=== PATIENT | male | born 1990 | race Two or more races ===

== ENCOUNTER 2019-06-16 08:02 | Inpatient (IN) | payer MEDICAID ==
[~2019-06-16] VITALS: Ht 154.9 cm; Wt 61.2 kg
[2019-06-16 08:05] VITALS: BP 131/84
--- NOTE | 2019-06-16 08:10 | NUR ---
ED Nurse Note: Patient brought in by fire from home c/o lower abdominal pain that started since 1 pm on 06/15/19, denies any nausea or vomiting, rates his pain a 9/10 pressure like pain, patient is alert and oriented x4 and is a irish speaking male, states that this is the first time he is having his issue, will continue to monitor
[2019-06-16] MEDS ORDERED: Omnipaque-300 100ml vial INJ PRN (08:15)
[2019-06-16] MEDS ORDERED: Ketorolac 30mg Inj IV ONE (08:15)
[2019-06-16] MEDS ORDERED: Metoclopramide 10mg/2ml Inj IVP ONE (08:15)
[2019-06-16 08:35] LABS: APPEARANCE,URINE CLEAR; BILIRUBIN, URINE NEGATIVE (NEGATIVE); GLUCOSE, URINE (UA) NEGATIVE (NEGATIVE); KETONES,URINE 1+ (NEGATIVE); LEUKOCYTE ESTERASE ,URINE 1+ (NEGATIVE); NITRITE,URINE NEGATIVE (NEGATIVE); PH,URINE 6.5 (4.5-8.0); PROTEIN,URINE 1+ (NEGATIVE); UROBILINOGEN,URINE 1 MG/DL (0.0-1.0)
[2019-06-16 08:39] LABS: COLOR,URINE YELLOW
[2019-06-16 08:41] LABS: BASOPHILS % (AUTO) 0.9 % (0.0-2.0); EOSINOPHILS % (AUTO) 0.6 % (0.0-3.0); HEMATOCRIT 36.3 % (42.0-52.0); HEMOGLOBIN 13.4 G/DL (14.2-18.0); MEAN CORPUSCULAR VOLUME 88 FL (80-99); MONOCYTES % (AUTO) 9.3 % (1.0-10.0); NEUTROPHILS % (AUTO) 58.2 % (45.0-75.0); PLATELET COUNT 183 K/UL (150-450); RED BLOOD COUNT 4.14 M/UL (4.70-6.10); RED CELL DISTRIBUTION WIDTH 10.6 % (11.6-14.8); WHITE BLOOD COUNT 8.5 K/UL (4.8-10.8)
[2019-06-16 08:52] LABS: ANION GAP 9 mmol/L (5-15); BLOOD UREA NITROGEN 19 mg/dL (7-18); CALCIUM 8.8 MG/DL (8.5-10.1); CARBON DIOXIDE 29 MMOL/L (21-32); CHLORIDE 101 MMOL/L (98-107); CREATININE 0.8 MG/DL (0.55-1.30); POTASSIUM 3.4 MMOL/L (3.5-5.1); SODIUM 139 MMOL/L (136-145)
[2019-06-16 08:57] LABS: ALANINE AMINOTRANSFERASE 69 U/L (12-78); ALBUMIN 3.8 G/DL (3.4-5.0); ALKALINE PHOSPHATASE 77 U/L (46-116); ASPARTATE AMINO TRANSFERASE 24 U/L (15-37); BILIRUBIN,TOTAL 0.8 MG/DL (0.2-1.0)
--- NOTE | 2019-06-16 09:57 | Emergency Room Report ---
History of Present Illness General Chief Complaint: Abdominal Pain Source: Patient Present Illness HPI Patient presents with complaints of right lower abdominal pain Reports that pain started yesterday around 1:00 in the morning Denies any fevers denies any vomiting Denies any diarrhea Denies any chest pain or shortness of breath denies any recent trauma Pain is 8 out of 10 localized to the right lower quadrant denies any testicular pain Denies any change with position or exertion Allergies: Coded Allergies: No Known Allergies (Unverified , 06/16/19) Patient History Past Medical History: see triage record Reviewed Nursing Documentation: PMH: Agreed; PSxH: Agreed Nursing Documentation-PMH Hx Cardiac Problems: No - HIV + Review of Systems All Other Systems: negative except mentioned in HPI Physical Exam Vital Signs Date Time Temp Pulse Resp B/P (MAP) Pulse Ox O2 Delivery O2 Flow Rate FiO2 06/16/19 07:54 99.0 110 18 140/80 (100) 98 Room Air Sp02 EP Interpretation: reviewed, normal General Appearance: well appearing, no apparent distress Head: normocephalic, atraumatic Eyes: bilateral eye PERRL, bilateral eye EOMI ENT: hearing grossly normal, normal pharynx, TMs + canals normal, uvula midline Neck: full range of motion, supple, no meningismus, no bony tend Respiratory: lungs clear, normal breath sounds, no rhonchi, no respiratory distress, no retraction, no accessory muscle use Cardiovascular #1: normal peripheral pulses, regular rate, rhythm, no edema, no gallop, no JVD, no murmur Gastrointestinal: normal bowel sounds, soft, no mass, no organomegaly, non- distended, no guarding, no hernia, no pulsatile mass, no rebound, tenderness - Reproduce in the right mid and lower abdominal region Genitourinary: no CVA tenderness Musculoskeletal: normal inspection Neurologic: oriented x3, responsive, 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 as tested, motor strength/ tone normal, sensory intact Psychiatric: mood/affect normal Skin: no rash Lymphatic: normal inspection, no adenopathy Medical Decision Making Diagnostic Impression: Primary Impression: Abdominal mass Additional Impressions: Abdominal pain HIV (human immunodeficiency virus infection) ER Course With the history exam and presentation, multiple differentials considered, including but not limited to appendicitis, gastritis, cholecystitis, diverticulitis Patient has extensive blood work and imaging initiated CT imaging is showing concerning findings there is what appears to be possible mass There is also a hemorrhagic component Contact is made with general surgery patient will require admission and further care Labs Test 06/16/19 08:20 06/16/19 08:32 06/17/19 07:07 White Blood Count 8.5 K/UL (4.8-10.8) 6.5 K/UL (4.8-10.8) Red Blood Count 4.14 M/UL (4.70-6.10) 3.64 M/UL (4.70-6.10) Hemoglobin 13.4 G/DL (14.2-18.0) 11.7 G/DL (14.2-18.0) Hematocrit 36.3 % (42.0-52.0) 32.5 % (42.0-52.0) Mean Corpuscular Volume 88 FL (80-99) 89 FL (80-99) Mean Corpuscular Hemoglobin 32.3 PG (27.0-31.0) 32.2 PG (27.0-31.0) Mean Corpuscular Hemoglobin Concent 36.8 G/DL (32.0-36.0) 36.1 G/DL (32.0-36.0) Red Cell Distribution Width 10.6 % (11.6-14.8) 9.8 % (11.6-14.8) Platelet Count 183 K/UL (150-450) 159 K/UL (150-450) Mean Platelet Volume 10.3 FL (6.5-10.1) 9.2 FL (6.5-10.1) Neutrophils (%) (Auto) 58.2 % (45.0-75.0) 59.5 % (45.0-75.0) Lymphocytes (%) (Auto) 31.0 % (20.0-45.0) 28.0 % (20.0-45.0) Monocytes (%) (Auto) 9.3 % (1.0-10.0) 10.2 % (1.0-10.0) Eosinophils (%) (Auto) 0.6 % (0.0-3.0) 1.1 % (0.0-3.0) Basophils (%) (Auto) 0.9 % (0.0-2.0) 1.2 % (0.0-2.0) Urine Color Yellow Urine Appearance Clear Urine pH 6.5 (4.5-8.0) Urine Specific [place] 1.015 (1.005-1.035) Urine Protein 1+ (NEGATIVE) Urine Glucose (UA) Negative (NEGATIVE) Urine Ketones 1+ (NEGATIVE) Urine Blood Negative (NEGATIVE) Urine Nitrite Negative (NEGATIVE) Urine Bilirubin Negative (NEGATIVE) Urine Urobilinogen 1 MG/DL (0.0-1.0) Urine Leukocyte Esterase 1+ (NEGATIVE) Urine RBC 0 /HPF (0 - 0) Urine WBC 2-4 /HPF (0 - 0) Urine Squamous Epithelial Cells Occasional /LPF Urine Bacteria Occasional /HPF (NONE) Sodium Level 139 MMOL/L (136-145) 140 MMOL/L (136-145) Potassium Level 3.4 MMOL/L (3.5-5.1) 3.9 MMOL/L (3.5-5.1) Chloride Level 101 MMOL/L (98-107) 105 MMOL/L (98-107) Carbon Dioxide Level 29 MMOL/L (21-32) 26 MMOL/L (21-32) Anion Gap 9 mmol/L (5-15) 9 mmol/L (5-15) Blood Urea Nitrogen 19 mg/dL (7-18) 8 mg/dL (7-18) Creatinine 0.8 MG/DL (0.55-1.30) 0.7 MG/DL (0.55-1.30) Estimat Glomerular Filtration Rate > 60 mL/min (>60) > 60 mL/min (>60) Glucose Level 124 MG/DL (74-106) 101 MG/DL (74-106) Calcium Level 8.8 MG/DL (8.5-10.1) 8.5 MG/DL (8.5-10.1) Total Bilirubin 0.8 MG/DL (0.2-1.0) 0.8 MG/DL (0.2-1.0) Aspartate Amino Transf (AST/SGOT) 24 U/L (15-37) 26 U/L (15-37) Alanine Aminotransferase (ALT/SGPT) 69 U/L (12-78) 63 U/L (12-78) Alkaline Phosphatase 77 U/L (46-116) 63 U/L (46-116) Total Protein 7.7 G/DL (6.4-8.2) 7.1 G/DL (6.4-8.2) Albumin 3.8 G/DL (3.4-5.0) 3.4 G/DL (3.4-5.0) Globulin 3.9 g/dL 3.7 g/dL Albumin/Globulin Ratio 1.0 (1.0-2.7) 0.9 (1.0-2.7) Lipase 170 U/L (73-393) Erythrocyte Sedimentation Rate 29 MM/HR (0-15) Prothrombin Time 10.0 SEC (9.30-11.50) Prothromb Time International Ratio 0.9 (0.9-1.1) Activated Partial Thromboplast Time 28 SEC (23-33) C-Reactive Protein, Quantitative 3.7 mg/dL (0.00-0.90) Amylase Level 54 U/L (25-115) Rhythm Strip Diag. Results EP Interpretation: yes Rate: 77 Rhythm: NSR, no PVC's, no ectopy CT/MRI/US Diagnostic Results CT/MRI/US Diagnostic Results : Impression CT abdomen pelvisIMPRESSION: 6 x 8.0 x 10.4 cm hyperdense mass of the posterior lateral wall of the ascending colon. Narrowing of the colonic lumen without obstruction. Small hyperdense fluid along the right paracolic gutter and in the pelvis may be hemorrhagic. Findings worrisome for neoplasm, possibly hemorrhagic. Differential may include hemorrhage or infection of a duplication cyst. Last Vital Signs Date Time Temp Pulse Resp B/P (MAP) Pulse Ox O2 Delivery O2 Flow Rate FiO2 06/16/19 09:00 98.9 06/16/19 08:05 90 18 Room Air 06/16/19 08:05 131/84 98 Status: improved Disposition: ADMITTED INPATIENT Condition: Serious Scripts Unable to Obtain Active Prescriptions or Reported Meds Referrals: NON PHYSICIAN (PCP) Jae Camejo DO Jun 16, 2019 09:57
--- NOTE | 2019-06-16 10:34 | Diagnostic Imaging Report ---
EXAM: CT Abdomen and Pelvis With Intravenous Contrast CLINICAL HISTORY: PAIN TECHNIQUE: Axial computed tomography images of the abdomen and pelvis with intravenous contrast. CTDI is 11.4 mGy and DLP is 664 mGy-cm. One or more of the following dose reduction techniques were used: automated exposure control, adjustment of the mA and or kV according to patient size, use of iterative reconstruction technique. COMPARISON: No relevant prior studies available. FINDINGS: Lung bases: Bibasilar lung atelectasis airspace disease. ABDOMEN: Liver: Mild fatty liver. Gallbladder and bile ducts: Unremarkable. No calcified stones. No ductal dilation. Pancreas: Unremarkable. No mass. No ductal dilation. Spleen: Unremarkable. No splenomegaly. Adrenals: Unremarkable. No mass. Kidneys and ureters: 2.5 cm left renal cyst. No hydronephrosis. Stomach and bowel: 6 x 8.0 x 10.4 cm hyperdense mass of the posterior lateral wall of the ascending colon. Narrowing of the colonic lumen without obstruction. Small hyperdense fluid along the right paracolic gutter and in the pelvis may be hemorrhagic. PELVIS: Appendix: No findings to suggest acute appendicitis. Bladder: Mild thickening of the urinary bladder. Reproductive: Unremarkable as visualized. ABDOMEN and PELVIS: Intraperitoneal space: Unremarkable. No free air. No significant fluid collection. Bones joints: No acute fracture. No dislocation. Soft tissues: Small bilateral fat-containing inguinal hernias. Gynecomastia. Vasculature: Unremarkable. No abdominal aortic aneurysm. Lymph nodes: Small mesenteric and retroperitoneal lymph nodes. IMPRESSION: 6 x 8.0 x 10.4 cm hyperdense mass of the posterior lateral wall of the ascending colon. Narrowing of the colonic lumen without obstruction. Small hyperdense fluid along the right paracolic gutter and in the pelvis may be hemorrhagic. Findings worrisome for neoplasm, possibly hemorrhagic. Differential may include hemorrhage or infection of a duplication cyst.
[2019-06-16 11:00] VITALS: BP 127/80
--- NOTE | 2019-06-16 12:01 | Consultation ---
History of Present Illness General Date patient seen: Jun 16, 2019 Reason for Hospitalization: Abdominal Pain Present Illness HPI This is a very pleasant 28-year-old male with known history of HIV currently under treatment who presented to the emergency department at [facility] complaining of worsening right lower quadrant abdominal pain. Patient starts pain began yesterday and has been progressively getting worse so he came in for evaluation. No nausea vomiting fever or chills. Normal flatus and bowel movements. In emergency department labs okay but CT scan concerning for lesion in the ascending colon. Surgery was called to evaluate. Patient seen, patient evaluated, chart reviewed. No prior similar symptoms. No other medical issues. Medications for HIV which his partner will bring in today. Allergies: Coded Allergies: No Known Allergies (Unverified , 06/16/19) Patient History History Provided By: Patient, PMD Healthcare decision maker Resuscitation status Advanced Directive on File Past Medical/Surgical History Past Medical/Surgical History: (1) HIV (human immunodeficiency virus infection) Review of Systems Review of Symptoms General ROS: no weight loss or fever Psychological ROS: no depression or mood changes, no memory loss Ophthalmic ROS: no visual changes or eye irritation ENT ROS: no nasal congestion, hearing loss, dizziness Allergy and Immunology ROS: no allergic symptoms or urticaria Hematological and Lymphatic ROS: no swollen glands, unusual bleeding or bruising Endocrine ROS: no polyuria, polydipsia, weight changes, temperature intolerance Respiratory ROS: no cough, shortness of breath, or wheezing Cardiovascular ROS: no chest pain or dyspnea on exertion Gastrointestinal ROS: abdominal pain, bright red blood in stool. Musculoskeletal ROS: no myalgias or arthralgias Neurological ROS: no TIA or stroke symptoms Dermatological ROS: no new or changing skin lesions, rashes or pruritis Physical Exam Physical Exam General appearance: alert, cooperative, no distress, appears stated age Head: Normocephalic, without obvious abnormality, atraumatic Eyes: conjunctivae/corneas clear. PERRL, EOM's intact. Fundi benign Throat: Lips, mucosa, and tongue normal. Teeth and gums normal Neck: supple, symmetrical, trachea midline, no adenopathy, thyroid: not enlarged, symmetric, no tenderness/mass/nodules, no carotid bruit and no JVD Lungs: clear to auscultation bilaterally Heart: regular rate and rhythm, S1, S2 normal, no murmur, click, rub or gallop Abdomen: soft, right lower quadrant-tender. Bowel sounds normal. No masses, no organomegaly Extremities: extremities normal, atraumatic, no cyanosis or edema Pulses: 2+ and symmetric Skin: Skin color, texture, turgor normal. No rashes or lesions Neurologic: Grossly normal Last 24 Hour Vital Signs Date Time Temp Pulse Resp B/P (MAP) Pulse Ox O2 Delivery O2 Flow Rate FiO2 06/16/19 09:00 98.9 06/16/19 08:05 90 18 Room Air 06/16/19 08:05 99.0 89 18 131/84 98 Room Air 06/16/19 07:54 99.0 110 18 140/80 (100) 98 Room Air Laboratory Tests Test 06/16/19 08:20 06/16/19 08:32 White Blood Count 8.5 K/UL (4.8-10.8) Red Blood Count 4.14 M/UL (4.70-6.10) L Hemoglobin 13.4 G/DL (14.2-18.0) L Hematocrit 36.3 % (42.0-52.0) L Mean Corpuscular Volume 88 FL (80-99) Mean Corpuscular Hemoglobin 32.3 PG (27.0-31.0) H Mean Corpuscular Hemoglobin Concent 36.8 G/DL (32.0-36.0) H Red Cell Distribution Width 10.6 % (11.6-14.8) L Platelet Count 183 K/UL (150-450) Mean Platelet Volume 10.3 FL (6.5-10.1) H Neutrophils (%) (Auto) 58.2 % (45.0-75.0) Lymphocytes (%) (Auto) 31.0 % (20.0-45.0) Monocytes (%) (Auto) 9.3 % (1.0-10.0) Eosinophils (%) (Auto) 0.6 % (0.0-3.0) Basophils (%) (Auto) 0.9 % (0.0-2.0) Urine Color Yellow Urine Appearance Clear Urine pH 6.5 (4.5-8.0) Urine Specific [place] 1.015 (1.005-1.035) Urine Protein 1+ (NEGATIVE) H Urine Glucose (UA) Negative (NEGATIVE) Urine Ketones 1+ (NEGATIVE) H Urine Blood Negative (NEGATIVE) Urine Nitrite Negative (NEGATIVE) Urine Bilirubin Negative (NEGATIVE) Urine Urobilinogen 1 MG/DL (0.0-1.0) H Urine Leukocyte Esterase 1+ (NEGATIVE) H Urine RBC 0 /HPF (0 - 0) Urine WBC 2-4 /HPF (0 - 0) Urine Squamous Epithelial Cells Occasional /LPF Urine Bacteria Occasional /HPF (NONE) Sodium Level 139 MMOL/L (136-145) Potassium Level 3.4 MMOL/L (3.5-5.1) L Chloride Level 101 MMOL/L (98-107) Carbon Dioxide Level 29 MMOL/L (21-32) Anion Gap 9 mmol/L (5-15) Blood Urea Nitrogen 19 mg/dL (7-18) H Creatinine 0.8 MG/DL (0.55-1.30) Estimat Glomerular Filtration Rate > 60 mL/min (>60) Glucose Level 124 MG/DL (74-106) H Calcium Level 8.8 MG/DL (8.5-10.1) Total Bilirubin 0.8 MG/DL (0.2-1.0) Aspartate Amino Transf (AST/SGOT) 24 U/L (15-37) Alanine Aminotransferase (ALT/SGPT) 69 U/L (12-78) Alkaline Phosphatase 77 U/L (46-116) Total Protein 7.7 G/DL (6.4-8.2) Albumin 3.8 G/DL (3.4-5.0) Globulin 3.9 g/dL Albumin/Globulin Ratio 1.0 (1.0-2.7) Lipase 170 U/L (73-393) Height (Feet): 5 Height (Inches): 1.00 Weight (Pounds): 135 Medications Current Medications Medications (Trade) Dose Ordered Sig/Nikki Route PRN Reason Start Time Stop Time Status Last Admin Dose Admin Iohexol (OMNIPAQUE-300 100ml) 100 ml NOW PRN INJ Radiology Procedure 06/16/19 08:15 06/18/19 08:04 Assessment/Plan Problem List: (1) Abdominal pain Assessment & Plan: This is a 28-year-old male with acute onset right lower quadrant abdominal pain x1 day. No nausea vomiting fever chills. Labs normal. CT scan with normal appendix but abnormal mass versus cystic collection in the ascending colon. Will review CT with our radiologist. Jaye for clear liquids IV fluids GI consult for considerations of colonoscopy We will follow with serial abdominal exams Ultrasound ordered and pending Thank you with follow with recommendations ICD Codes: R10.9 - Unspecified abdominal pain SNOMED: [id number] Juan Alberto Lopez Jun 16, 2019 12:01
--- NOTE | 2019-06-16 12:35 | NUR ---
ED Nurse Note: US TECH AT THE BED SIDE FOR PROCEDURE.
--- NOTE | 2019-06-16 12:57 | NUR ---
ED Nurse Note: PT TRANSFERRED TO MED SURG UNIT [facility]IA [facility] WITH EDER MAJOR. ALL BELONGINGS SENT.
--- NOTE | 2019-06-16 13:23 | Diagnostic Imaging Report ---
EXAM: US Abdomen Complete CLINICAL HISTORY: ABD PAIN TECHNIQUE: Real-time ultrasound of the abdomen with image documentation. COMPARISON: CT abdomen and pelvis today FINDINGS: Liver: Liver measures 14 cm. No intrahepatic bile duct dilation. Gallbladder: Gallbladder wall 1.7 mm. No gallstones. Common bile duct: CBD 5.2 mm. No stones. No dilation. Pancreas: Unremarkable as visualized. Kidneys: 2.2 cm anechoic left renal cyst. Right kidney measures 10.2 x 4.6 x 4.6 cm. Left kidney measures 9.1 x 4.3 x 4.1 cm. No stones. No hydronephrosis. Spleen: Spleen measures 8.8 cm. Aorta: Unremarkable. No aneurysm. Inferior vena cava: Unremarkable. Free fluid: 7 x 6.8 cm complex mass inferior to the liver without vascularity. Trace free fluid in Morison's pouch. IMPRESSION: 1. 7 x 6.8 cm complex mass inferior to the liver without vascularity. Trace free fluid in Morison's pouch. 2. 2.2 cm anechoic left renal cyst.
[2019-06-16] MEDS ORDERED: LORazepam 1mg tab ORAL PRN (14:00)
[2019-06-16] MEDS ORDERED: HYDROmorphone 1mg/ml Carpuject IVP PRN (14:00)
[2019-06-16] MEDS ORDERED: Hydromorphone 0.5mg/0.5ml inj IVP PRN ×2 (14:00→14:15)
--- NOTE | 2019-06-16 14:20 | History and Physical ---
History of Present Illness General Date patient seen: Jun 16, 2019 Time patient seen: 13:00 Reason for Hospitalization: Abdominal Pain Present Illness HPI 28 y/o male from [facility] who was dx with HIV 7 years ago and has been on Genvoya therapy CASTILLO and is compliant with his medications. He denies prior OI, recent trauma, illness or sick contacts. Reports sudden onset of R UQ abdominal pain which is persistent and not going away. He had intial workup in the ED and CT abdomen was abnormal with large mass noted in the posterior aspect of the ascending colon. Admission is requested. Dr. Lopez from surgery was called by the ER and the case was discussed with him. US abdomen ordered today. Allergies: Coded Allergies: No Known Allergies (Unverified , 06/16/19) Medication History Medications Narrative Genyovia one tab PO daily Patient History History Provided By: Patient Healthcare decision maker Resuscitation status full code Advanced Directive on File Family History Family History: FHx: diabetes mellitus Review of Systems Gastrointestinal: Reports: abdominal pain Physical Exam General Appearance: WD/WN Lines, tubes and drains: peripheral HEENT: normocephalic Neck: non-tender Respiratory/Chest: chest wall non-tender, lungs clear Cardiovascular/Chest: normal peripheral pulses, normal rate Abdomen: normal bowel sounds, non tender 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 II-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 grossly normal Last 24 Hour Vital Signs Date Time Temp Pulse Resp B/P (MAP) Pulse Ox O2 Delivery O2 Flow Rate FiO2 06/16/19 12:57 98.0 76 17 132/79 97 Room Air 06/16/19 11:00 98.3 70 15 127/80 100 Room Air 06/16/19 09:00 98.9 06/16/19 08:05 90 18 Room Air 06/16/19 08:05 99.0 89 18 131/84 98 Room Air 06/16/19 07:54 99.0 110 18 140/80 (100) 98 Room Air Laboratory Tests Test 06/16/19 08:20 06/16/19 08:32 White Blood Count 8.5 K/UL (4.8-10.8) Red Blood Count 4.14 M/UL (4.70-6.10) L Hemoglobin 13.4 G/DL (14.2-18.0) L Hematocrit 36.3 % (42.0-52.0) L Mean Corpuscular Volume 88 FL (80-99) Mean Corpuscular Hemoglobin 32.3 PG (27.0-31.0) H Mean Corpuscular Hemoglobin Concent 36.8 G/DL (32.0-36.0) H Red Cell Distribution Width 10.6 % (11.6-14.8) L Platelet Count 183 K/UL (150-450) Mean Platelet Volume 10.3 FL (6.5-10.1) H Neutrophils (%) (Auto) 58.2 % (45.0-75.0) Lymphocytes (%) (Auto) 31.0 % (20.0-45.0) Monocytes (%) (Auto) 9.3 % (1.0-10.0) Eosinophils (%) (Auto) 0.6 % (0.0-3.0) Basophils (%) (Auto) 0.9 % (0.0-2.0) Urine Color Yellow Urine Appearance Clear Urine pH 6.5 (4.5-8.0) Urine Specific [place] 1.015 (1.005-1.035) Urine Protein 1+ (NEGATIVE) H Urine Glucose (UA) Negative (NEGATIVE) Urine Ketones 1+ (NEGATIVE) H Urine Blood Negative (NEGATIVE) Urine Nitrite Negative (NEGATIVE) Urine Bilirubin Negative (NEGATIVE) Urine Urobilinogen 1 MG/DL (0.0-1.0) H Urine Leukocyte Esterase 1+ (NEGATIVE) H Urine RBC 0 /HPF (0 - 0) Urine WBC 2-4 /HPF (0 - 0) Urine Squamous Epithelial Cells Occasional /LPF Urine Bacteria Occasional /HPF (NONE) Sodium Level 139 MMOL/L (136-145) Potassium Level 3.4 MMOL/L (3.5-5.1) L Chloride Level 101 MMOL/L (98-107) Carbon Dioxide Level 29 MMOL/L (21-32) Anion Gap 9 mmol/L (5-15) Blood Urea Nitrogen 19 mg/dL (7-18) H Creatinine 0.8 MG/DL (0.55-1.30) Estimat Glomerular Filtration Rate > 60 mL/min (>60) Glucose Level 124 MG/DL (74-106) H Calcium Level 8.8 MG/DL (8.5-10.1) Total Bilirubin 0.8 MG/DL (0.2-1.0) Aspartate Amino Transf (AST/SGOT) 24 U/L (15-37) Alanine Aminotransferase (ALT/SGPT) 69 U/L (12-78) Alkaline Phosphatase 77 U/L (46-116) Total Protein 7.7 G/DL (6.4-8.2) Albumin 3.8 G/DL (3.4-5.0) Globulin 3.9 g/dL Albumin/Globulin Ratio 1.0 (1.0-2.7) Lipase 170 U/L (73-393) Height (Feet): 5 Height (Inches): 1.00 Weight (Pounds): 135 Medications Current Medications Medications (Trade) Dose Ordered Sig/Nikki Route PRN Reason Start Time Stop Time Status Last Admin Dose Admin Acetaminophen (Tylenol) 650 mg Q4H PRN ORAL Mild Pain (Pain Scale 1-3) 06/16/19 14:02 07/16/19 14:01 Dextrose (Dextrose 50%) 25 ml Q30M PRN IV Hypoglycemia 06/16/19 14:00 07/16/19 13:59 Dextrose (Dextrose 50%) 50 ml Q30M PRN IV Hypoglycemia 06/16/19 14:00 07/16/19 13:59 Hydromorphone HCl (Dilaudid) 0.5 mg Q3H PRN IVP MODERATE PAIN 06/16/19 14:15 06/23/19 13:59 Hydromorphone HCl (Dilaudid) 1 mg Q3H PRN IVP SEVERE PAIN 06/16/19 14:15 06/23/19 13:59 Iohexol (OMNIPAQUE-300 100ml) 100 ml NOW PRN INJ Radiology Procedure 06/16/19 08:15 06/18/19 08:04 Lorazepam (Ativan) 1 mg Q8H PRN ORAL For Anxiety 06/16/19 14:00 06/23/19 13:59 Ondansetron HCl (Zofran) 4 mg Q6H PRN IVP Nausea & Vomiting 06/16/19 14:00 07/16/19 13:59 Pantoprazole (Protonix) 40 mg DAILY ORAL 06/17/19 09:00 07/17/19 08:59 Potassium Chloride/Sodium Chloride 1,000 ml @ 75 mls/hr [id number] IV 06/16/19 16:00 07/16/19 15:59 Temazepam (Restoril) 15 mg HSPRN PRN ORAL Insomnia 06/16/19 14:00 06/23/19 13:59 Assessment/Plan Status: not improved Assessment/Plan: 28 y/o M from [facility] with HIV x 7 years on CASTILLO compliant who is admitted with severe abdominal pain. # Acute abdominal pain CT abdomen with 6 x 8.0 x 10.4 cm hyperdense mass of the posterior lateral wall of the ascending colon. Narrowing of the colonic lumen without obstruction. Small hyperdense fluid along the right paracolic gutter and in the pelvis may be hemorrhagic. Findings worrisome for neoplasm, possibly hemorrhagic. Differential may include hemorrhage or infection of a duplication cyst. - Surgery consultatino with Dr. Lopez. - US abdomen today and MRI will be needed for Tuesday. - Consideration for surgical intervention. biopsy pending. - Full liquid diet for now - Pain control with Dilaudid - IVF will be continued # HIV - Continue Genyova CASTILLO per home medication # Borderline Hypokalemia - IVF with KCL 20 meq ordered - Monitor BMP in AM # NO Anticoagulation ordered due to risk for hemorrhage in unknown abdominal mass - Patient is ambulatory and low risk for DVT PPI for GI ppx FULL CODE Kip Romano MD Jun 16, 2019 14:20
--- NOTE | 2019-06-16 14:30 | NUR ---
NURSE NOTES: Patient resting comfortably in room. Received report form charge nurse, RALPH Cerda. Patient A&Ox4. On room air, no signs of distress or labored breathing. IV intact, patent, and saline locked. Complains of of pain. Bed in lowest position with call light in reach. Will contact MD for orders.
[2019-06-16 16:00] VITALS: BP 126/66
[2019-06-16] MEDS: NS w/KCl 20mEq 1000ml 1,000 ML IV SCH (17:03)
[2019-06-16] MEDS: HYDROmorphone 1mg/ml Carpuject IVP PRN (17:04)
--- NOTE | 2019-06-16 19:50 | NUR ---
HAND-OFF: Report given to RALPH Busch.
[2019-06-16 20:00] VITALS: BP 104/58
--- NOTE | 2019-06-16 20:00 | NUR ---
NURSE NOTES: received pt. in bed. AAOx4 no acute distress. no pain this time. bed in lowest position with call light within reach. will provide plain of care.
--- NOTE | 2019-06-16 23:00 | NUR ---
NURSE NOTES: Friend brought medication from home. Medication not in its original bottle, instead in a silver keychain container. Green oval pills. Patient stated it is Genvoya. 4 pills total but 1 out of 4 pills are broken into two. Medications are placed in pharmacy bag, will ask pharmacy in AM.
[2019-06-17] VITALS: BP 108/71
[2019-06-17 04:00] VITALS: BP 105/66
[2019-06-17] MEDS: NS w/KCl 20mEq 1000ml 1,000 ML IV SCH (05:17)
[2019-06-17] MEDS: Hydromorphone 0.5mg/0.5ml inj IVP PRN ×2 (06:28→23:17)
--- NOTE | 2019-06-17 07:20 | NUR ---
NURSE NOTES: Received report from RALPH Busch. Patient A&Ox4. In bed, eating breakfast. On room air, no signs of distress or labored breathing. IV intact, patent, and running IV fluids. Bed in lowest position with call light in reach. Will continue with plan of care.
--- NOTE | 2019-06-17 07:23 | NUR ---
HAND-OFF: Report given to Emilia ROSAS. Addendum: 06/17/19 at [id number] by MELVIN LIRA RN RN Patient's own medication/pills given to RALPH Nieto to verify with pharmacy.
--- NOTE | 2019-06-17 07:32 | NUR ---
NURSE NOTES: Talked to pharmacist Margaret about patient's home medications being brought without prescription label or original bottle. Pharmacist stated medication must be accompanied by prescription label or original bottle. Spoke with patient and patient stated a friend can bring the original bottle some time today.
[2019-06-17 07:46] LABS: BASOPHILS % (AUTO) 1.2 % (0.0-2.0); EOSINOPHILS % (AUTO) 1.1 % (0.0-3.0); HEMATOCRIT 32.5 % (42.0-52.0); HEMOGLOBIN 11.7 G/DL (14.2-18.0); MEAN CORPUSCULAR VOLUME 89 FL (80-99); MONOCYTES % (AUTO) 10.2 % (1.0-10.0); NEUTROPHILS % (AUTO) 59.5 % (45.0-75.0); PLATELET COUNT 159 K/UL (150-450); RED BLOOD COUNT 3.64 M/UL (4.70-6.10); RED CELL DISTRIBUTION WIDTH 9.8 % (11.6-14.8); WHITE BLOOD COUNT 6.5 K/UL (4.8-10.8)
[2019-06-17 07:57] LABS: INR 0.9 (0.9-1.1)
[2019-06-17 08:00] VITALS: BP 132/84
[2019-06-17 08:20] LABS: ALANINE AMINOTRANSFERASE 63 U/L (12-78); ALBUMIN 3.4 G/DL (3.4-5.0); ALBUMIN/GLOBULIN RATIO 0.9 (1.0-2.7); ALKALINE PHOSPHATASE 63 U/L (46-116); AMYLASE 54 U/L (25-115); ANION GAP 9 mmol/L (5-15); ASPARTATE AMINO TRANSFERASE 26 U/L (15-37); BILIRUBIN,TOTAL 0.8 MG/DL (0.2-1.0); BLOOD UREA NITROGEN 8 mg/dL (7-18); CALCIUM 8.5 MG/DL (8.5-10.1); CARBON DIOXIDE 26 MMOL/L (21-32); CHLORIDE 105 MMOL/L (98-107); CREATININE 0.7 MG/DL (0.55-1.30); POTASSIUM 3.9 MMOL/L (3.5-5.1); SODIUM 140 MMOL/L (136-145)
[2019-06-17 12:00] VITALS: BP 107/66
[2019-06-17] MEDS ORDERED: Gadavist 7.5mMol/7.5ml vial IV PRN (12:45)
--- NOTE | 2019-06-17 13:23 | General Progress Note ---
Assessment/Plan Status: stable, not improved Assessment/Plan: 28 y/o M from [facility] with HIV x 7 years on CASTILLO compliant who is admitted with severe abdominal pain. # Acute abdominal pain CT abdomen with 6 x 8.0 x 10.4 cm hyperdense mass of the posterior lateral wall of the ascending colon. Narrowing of the colonic lumen without obstruction. Small hyperdense fluid along the right paracolic gutter and in the pelvis may be hemorrhagic. Findings worrisome for neoplasm, possibly hemorrhagic. Differential may include hemorrhage or infection of a duplication cyst. - Surgery consultatino with Dr. Lopez. - US abdomen reviewed and MRI w w/o contrast - Tuesday. - Consideration for surgical intervention. biopsy pending. - Full liquid diet for now, pending - Pain control with Dilaudid - IVF low rate as he is taking oral diet. # HIV - Continue Genyova CASTILLO per home medication # Borderline Hypokalemia - IVF with KCL 20 meq ordered yesterday and stable now. - Monitor BMP as needed. Will not order labs for tomorrow as stable. # NO Anticoagulation ordered due to risk for hemorrhage in unknown abdominal mass - Patient is ambulatory and low risk for DVT PPI for GI ppx FULL CODE Subjective ROS Limited/Unobtainable: No Gastrointestinal/Abdominal: Reports: abdominal pain Allergies: Coded Allergies: No Known Allergies (Unverified , 06/16/19) Objective Last 24 Hour Vital Signs Date Time Temp Pulse Resp B/P (MAP) Pulse Ox O2 Delivery O2 Flow Rate FiO2 06/17/19 08:00 98.2 89 17 132/84 (100) 95 06/17/19 04:00 98.9 66 18 105/66 (79) 98 06/17/19 00:00 98.1 79 18 108/71 (83) 100 06/16/19 21:00 Room Air 06/16/19 20:00 98.2 83 18 104/58 (73) 100 06/16/19 16:00 97.1 86 17 126/66 (86) 97 06/16/19 15:10 Room Air Intake and Output 06/16/19 06/17/19 19:00 07:00 Intake Total 555 ml 825 ml Output Total 500 ml Balance 55 ml 825 ml Intake Oral 480 ml IV Total 75 ml 825 ml Output Urine Total 500 ml # Voids 1 2 # Bowel Movements 1 Laboratory Tests 06/17/19 07:07: White Blood Count 6.5, Red Blood Count 3.64L, Hemoglobin 11.7L, Hematocrit 32.5L , Mean Corpuscular Volume 89, Mean Corpuscular Hemoglobin 32.2H, Mean Corpuscular Hemoglobin Concent 36.1H, Red Cell Distribution Width 9.8L, Platelet Count 159, Mean Platelet Volume 9.2, Neutrophils (%) (Auto) 59.5, Lymphocytes (%) (Auto) 28.0, Monocytes (%) (Auto) 10.2H, Eosinophils (%) (Auto) 1.1, Basophils (%) (Auto) 1.2, Erythrocyte Sedimentation Rate 29H, Prothrombin Time 10.0, Prothromb Time International Ratio 0.9, Activated Partial Thromboplast Time 28, Sodium Level 140, Potassium Level 3.9, Chloride Level 105 , Carbon Dioxide Level 26, Anion Gap 9, Blood Urea Nitrogen 8, Creatinine 0.7, Estimat Glomerular Filtration Rate > 60, Glucose Level 101, Calcium Level 8.5, Total Bilirubin 0.8, Aspartate Amino Transf (AST/SGOT) 26, Alanine Aminotransferase (ALT/SGPT) 63, Alkaline Phosphatase 63, C-Reactive Protein, Quantitative 3.7H, Total Protein 7.1, Albumin 3.4, Globulin 3.7, Albumin/ Globulin Ratio 0.9L, Amylase Level 54 Height (Feet): 5 Height (Inches): 1.00 Weight (Pounds): 135 General Appearance: WD/WN, alert EENT: PERRL/EOMI Neck: supple Cardiovascular: regular rhythm Respiratory/Chest: chest wall non-tender, lungs clear Abdomen: normal bowel sounds, non tender, guarding, tender 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
[2019-06-17] MEDS: HYDROmorphone 1mg/ml Carpuject IVP PRN ×2 (13:56→18:19)
[2019-06-17 16:00] VITALS: BP 127/75
--- NOTE | 2019-06-17 19:30 | NUR ---
HAND-OFF: Report given to RALPH Busch.
--- NOTE | 2019-06-17 20:00 | NUR ---
NURSE NOTES: received pt. in bed. AAOx4 no acute distress. No c/o pain. bed in lowest position with call light within reach. will provide plan of care.
[2019-06-17 20:18] VITALS: BP 124/63
[2019-06-17] MEDS ORDERED: Meningococcal Polysacc Vaccine IM ONE (21:00)
--- NOTE | 2019-06-17 22:18 | NUR ---
NURSE NOTES: Patient asked if he can take his own medication (Genvoya) which he brought but not in the original bottle with label so pharmacy could not verify it in eMar until patient's friend brings the original bottle. Spoke with pharmacy regarding this request and stated we would need the MD order. Spoke with Dr. Mahoney, covering for Dr. Serrano, and stated that it is ok to give patient's own supply of medication even without original label. Will carry out as ordered.
[2019-06-18] VITALS: BP 114/64
[2019-06-18 04:11] VITALS: BP 102/66
--- NOTE | 2019-06-18 07:41 | NUR ---
HAND-OFF: Report given to Brandi ROSAS. Pt kept NPO p midnight for MRI
[2019-06-18] MEDS: Hydromorphone 0.5mg/0.5ml inj IVP PRN ×2 (07:52→15:54)
[2019-06-18 08:00] VITALS: BP 117/71
[2019-06-18 09:29] LABS: BASOPHILS % (AUTO) 1.4 % (0.0-2.0); EOSINOPHILS % (AUTO) 2.1 % (0.0-3.0); LYMPHOCYTES % (AUTO) 23.3 % (20.0-45.0); MEAN CORPUSCULAR VOLUME 88 FL (80-99); MONOCYTES % (AUTO) 7.8 % (1.0-10.0); NEUTROPHILS % (AUTO) 65.3 % (45.0-75.0); PLATELET COUNT 179 K/UL (150-450); RED BLOOD COUNT 3.74 M/UL (4.70-6.10); RED CELL DISTRIBUTION WIDTH 10.2 % (11.6-14.8); WHITE BLOOD COUNT 6.6 K/UL (4.8-10.8)
[2019-06-18 09:39] LABS: ANION GAP 9 mmol/L (5-15); BLOOD UREA NITROGEN 9 mg/dL (7-18); CARBON DIOXIDE 27 MMOL/L (21-32); CHLORIDE 101 MMOL/L (98-107); CREATININE 0.8 MG/DL (0.55-1.30); PHOSPHORUS 3.8 MG/DL (2.5-4.9); POTASSIUM 3.7 MMOL/L (3.5-5.1); SODIUM 137 MMOL/L (136-145)
--- NOTE | 2019-06-18 10:43 | NUR ---
MRI ABDOMEN W/WO COMPLETED.
[2019-06-18 12:00] VITALS: BP 106/66
--- NOTE | 2019-06-18 15:22 | Diagnostic Imaging Report ---
Indication: Right upper quadrant pain and mid right-sided abdominal pain Technique: Axial single shot fast spin echo breath hold, coronal single shot fast spin-echo breath hold, axial T2 FRFSE fat-saturated, 2-D thick slab MRCP, axial 2-D FIESTA fat-saturated, axial 3-D dual echo breath-hold, precontrast axial and postcontrast axial and coronal water weighted axial LAVA FLEX images of the abdomen Comparison: Reference made to abdomen pelvis CT dated 06/16/2019 Findings: There is a mass centered in the posterior wall of the ascending colon, corresponding to the abnormality reported on recent CT and ultrasound. This measures 7.3 cm transverse by 6.3 cm AP by 6.2 cm craniocaudad. On the T2-weighted images, this demonstrates homogeneously mildly increased central signal, with slightly lower signal along the periphery. On the LAVA FLEX images, it demonstrates intermediate signal with multiple scattered central areas of high signal. Similar findings are demonstrated on the in phase and out of phase spiral echo images. No discernible contrast enhancement is demonstrated on the postcontrast images. The extra colonic blood demonstrated on the recent CT scan is less well visualized on the current images, in part due to the smaller [id number]. The liver is unremarkable, without evidence of contrast enhancing lesion. The pancreas, spleen, adrenals, right kidney are unremarkable. Left kidney demonstrates an upper pole cyst. Impression: 6.3 x 7.3 x 6.2 cm mass in the posterior wall of the ascending colon, as described and corresponding with findings demonstrated on recent CT scan. No significant enhancement demonstrated. Foci of high signal on the dual echo and LAVA FLEX images suggest internal hemorrhage. Differential considerations include hypovascular neoplasm such as a mesenchymal tumor, hemorrhagic duplication cyst or other cysts, or spontaneous intramural hematoma. Note that the high attenuation fluid, presumably blood, extending from this along the retroperitoneum into the pelvis is not well-demonstrated on this exam. No other significant abnormality demonstrated
[2019-06-18 16:00] VITALS: BP 138/67
--- NOTE | 2019-06-18 16:00 | Surgery Progress Note ---
Surgery Progress Note Subjective Symptoms: improved, tolerating diet, voiding well, passing flatus, BM, pain decreased Objective Last 24 Hour Vital Signs Date Time Temp Pulse Resp B/P (MAP) Pulse Ox O2 Delivery O2 Flow Rate FiO2 06/18/19 12:00 98.2 68 20 106/66 (79) 96 06/18/19 09:00 Room Air 06/18/19 08:22 98.6 06/18/19 08:00 98.6 80 20 117/71 (86) 96 06/18/19 04:11 98.6 84 20 102/66 (78) 97 06/18/19 00:00 98.2 69 18 114/64 (81) 96 06/17/19 21:00 Room Air 06/17/19 20:18 98.2 74 20 124/63 (83) 96 06/17/19 16:00 97.7 77 17 127/75 (92) 98 I&O Intake and Output 06/17/19 06/18/19 19:00 07:00 Intake Total 1000 ml 1550 ml Balance 1000 ml 1550 ml Intake Oral 1000 ml 1000 ml IV Total 550 ml # Voids 9 7 Cardiovascular: RSR Respiratory: clear Abdomen: soft, non-tender, present bowel sounds, non-distended Extremities: no edema, no tenderness, no cyanosis Laboratory Tests Test 06/18/19 09:15 White Blood Count 6.6 K/UL (4.8-10.8) Red Blood Count 3.74 M/UL (4.70-6.10) L Hemoglobin 12.0 G/DL (14.2-18.0) L Hematocrit 33.0 % (42.0-52.0) L Mean Corpuscular Volume 88 FL (80-99) Mean Corpuscular Hemoglobin 32.2 PG (27.0-31.0) H Mean Corpuscular Hemoglobin Concent 36.4 G/DL (32.0-36.0) H Red Cell Distribution Width 10.2 % (11.6-14.8) L Platelet Count 179 K/UL (150-450) Mean Platelet Volume 9.0 FL (6.5-10.1) Neutrophils (%) (Auto) 65.3 % (45.0-75.0) Lymphocytes (%) (Auto) 23.3 % (20.0-45.0) Monocytes (%) (Auto) 7.8 % (1.0-10.0) Eosinophils (%) (Auto) 2.1 % (0.0-3.0) Basophils (%) (Auto) 1.4 % (0.0-2.0) Sodium Level 137 MMOL/L (136-145) Potassium Level 3.7 MMOL/L (3.5-5.1) Chloride Level 101 MMOL/L (98-107) Carbon Dioxide Level 27 MMOL/L (21-32) Anion Gap 9 mmol/L (5-15) Blood Urea Nitrogen 9 mg/dL (7-18) Creatinine 0.8 MG/DL (0.55-1.30) Estimat Glomerular Filtration Rate > 60 mL/min (>60) Glucose Level 99 MG/DL (74-106) Calcium Level 9.0 MG/DL (8.5-10.1) Phosphorus Level 3.8 MG/DL (2.5-4.9) Magnesium Level 1.8 MG/DL (1.8-2.4) CA 19-9 Antigen Pending Plan Problems: (1) Abdominal pain Assessment & Plan: This is a 28-year-old male with acute onset right lower quadrant abdominal pain x1 day. No nausea vomiting fever chills. Labs normal. CT scan with normal appendix but abnormal mass versus cystic collection in the ascending colon. CT noted US noted MRI noted Impression: 6.3 x 7.3 x 6.2 cm mass in the posterior wall of the ascending colon , as described and corresponding with findings demonstrated on recent CT scan. No significant enhancement demonstrated. Foci of high signal on the dual echo and LAVA FLEX images suggest internal hemorrhage. Differential considerations include hypovascular neoplasm such as a mesenchymal tumor, hemorrhagic duplication cyst or other cysts, or spontaneous intramural hematoma.Note that the high attenuation fluid, presumably blood, extending from this along the retroperitoneum into the pelvis is not well-demonstrated on this exam. okay for trial diet IV fluids ?colonoscopy Heme/onc eval - pending tumor markers We will follow with serial abdominal exams no acute surgical intervention planned at this time Thank you with follow with recommendations Juan Alberto Lopez Jun 18, 2019 16:00
--- NOTE | 2019-06-18 18:27 | General Progress Note ---
Assessment/Plan Problem List: (1) Abdominal mass ICD Codes: R19.00 - Intra-abdominal and pelvic swelling, mass and lump, unspecified site SNOMED: 960992497 (2) Abdominal pain ICD Codes: R10.9 - Unspecified abdominal pain SNOMED: 05464768 (3) HIV (human immunodeficiency virus infection) ICD Codes: B20 - Human immunodeficiency virus [HIV] disease SNOMED: 21586930 (4) Normocytic anemia ICD Codes: D64.9 - Anemia, unspecified SNOMED: 127995547 (5) Hypokalemia ICD Codes: E87.6 - Hypokalemia SNOMED: 85975385 Status: stable, not improved Assessment/Plan: 28 y/o M from [facility] with HIV x 7 years on CASTILLO compliant who is admitted with severe abdominal pain. # Acute abdominal pain 2/2 large retroperitoneal mass compressing colon. No obstruction of colon. #normocytic anemia CT abdomen with 6 x 8.0 x 10.4 cm hyperdense mass of the posterior lateral wall of the ascending colon. Narrowing of the colonic lumen without obstruction. Small hyperdense fluid along the right paracolic gutter and in the pelvis may be hemorrhagic. Findings worrisome for neoplasm, possibly hemorrhagic. Differential may include hemorrhage or infection of a duplication cyst. - Surgery consultation with Dr. Lopez. - will await MRI results - US abdomen reviewed and MRI w w/o contrast 06/18/19- redemonstrated above mass DDx cyst vs. neoplasm, hemorrhagic not excluded - Consideration for surgical intervention. biopsy pending. - Full liquid diet for now, pending - Pain control with Dilaudid - IVF low rate as he is taking oral diet. -Continue to trend CBC daily # HIV - Continue Genyova CASTILLO per home medication -Check CD4 and viral load # Borderline Hypokalemia - resolved - IVF with KCL 20 meq ordered yesterday and stable now. - Monitor BMP as needed. Will not order labs for tomorrow as stable. #normocytic anemia - trend CBC - Fe studies # NO Anticoagulation ordered due to risk for hemorrhage in unknown abdominal mass - Patient is ambulatory and low risk for DVT FENPPX DVTPPX: SCDs GI PPX: none needed Fluids: 1/2 NS @ 50 cc/hr Diet: Full liquid diet, per surgery Lines: peripheral PT/OT: pending Code status: Full code Dispo: December need transfer to outside hospital for further surgical intervention Reason for Continued Hospitalization: Abdominal mass 37 minutes spent on this encounter. Discussed with RN, patient, and general surgery. > 50% spent on counseling and care coordination. Time of note may not reflect time patient was seen. Subjective Date patient seen: Jun 18, 2019 Constitutional: Denies: chills, diaphoresis, fever, malaise, weakness, other HEENT: Denies: eye pain, blurred vision, tearing, double vision, ear pain, ear discharge, nose pain, nose congestion, throat pain, throat swelling, mouth pain , mouth swelling, other Cardiovascular: Denies: chest pain, edema, irregular heart rate, lightheadedness, palpitations, syncope, other Respiratory: Denies: cough, orthopnea, shortness of breath, SOB with excertion , SOB at rest, sputum, stridor, wheezing, other Gastrointestinal/Abdominal: Denies: abdomen distended, abdominal pain, black stools, tarry stools, blood in stool, constipated, diarrhea, difficulty swallowing, nausea, poor appetite, poor fluid intake, rectal bleeding, vomiting , other Genitourinary: Denies: burning, discharge, frequency, flank pain, hematuria, incontinence, pain, urgency, other Neurologic/Psychiatric: Denies: anxiety, depressed, emotional problems, headache, numbness, paresthesia, pre-existing deficit, seizure, tingling, tremors, weakness, other Endocrine: Denies: excessive sweating, flushing, intolerance to cold, intolerance to heat, increased hunger, increased thirst, increased urine, unexplained weight gain, unexplained weight loss, other Hematologic/Lymphatic: Denies: anemia, easy bleeding, easy bruising, other Allergies: Coded Allergies: No Known Allergies (Unverified , 06/16/19) Subjective No acute events overnight per nursing. Patient continues to complain of abdominal pain located mostly in right lower quadrant. Pain is constant, described as sharp, 5 out of 10. Patient denies any fevers, chills, cough, chest pain, or shortness of breath. +flatus and BM Objective Last 24 Hour Vital Signs Date Time Temp Pulse Resp B/P (MAP) Pulse Ox O2 Delivery O2 Flow Rate FiO2 06/18/19 16:24 97.5 06/18/19 16:00 97.5 64 18 138/67 (90) 95 10/21/19 12:00 98.2 68 20 106/66 (79) 96 06/18/19 09:00 Room Air 06/18/19 08:00 98.6 80 20 117/71 (86) 96 06/18/19 04:11 98.6 84 20 102/66 (78) 97 06/18/19 00:00 98.2 69 18 114/64 (81) 96 06/17/19 21:00 Room Air 06/17/19 20:18 98.2 74 20 124/63 (83) 96 Intake and Output 06/17/19 06/18/19 19:00 07:00 Intake Total 1000 ml 1550 ml Balance 1000 ml 1550 ml Intake Oral 1000 ml 1000 ml IV Total 550 ml # Voids 9 7 Laboratory Tests 06/18/19 09:15: White Blood Count 6.6, Red Blood Count 3.74L, Hemoglobin 12.0L, Hematocrit 33.0L , Mean Corpuscular Volume 88, Mean Corpuscular Hemoglobin 32.2H, Mean Corpuscular Hemoglobin Concent 36.4H, Red Cell Distribution Width 10.2L, Platelet Count 179, Mean Platelet Volume 9.0, Neutrophils (%) (Auto) 65.3, Lymphocytes (%) (Auto) 23.3, Monocytes (%) (Auto) 7.8, Eosinophils (%) (Auto) 2.1, Basophils (%) (Auto) 1.4, Sodium Level 137, Potassium Level 3.7, Chloride Level 101, Carbon Dioxide Level 27, Anion Gap 9, Blood Urea Nitrogen 9, Creatinine 0.8, Estimat Glomerular Filtration Rate > 60, Glucose Level 99, Calcium Level 9.0, Phosphorus Level 3.8, Magnesium Level 1.8, CA 19-9 Antigen [ Pending] Height (Feet): 5 Height (Inches): 1.00 Weight (Pounds): 135 General Appearance: WD/WN, no apparent distress, alert EENT: PERRL/EOMI, normal ENT inspection Neck: non-tender, normal alignment, supple Cardiovascular: normal peripheral pulses, normal rate, regular rhythm Respiratory/Chest: chest wall non-tender, lungs clear, normal breath sounds Abdomen: normal bowel sounds - Soft, nondistended, diffuse tenderness to palpation light touch Extremities: normal range of motion, non-tender, normal inspection 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 Jun 18, 2019 18:27
--- NOTE | 2019-06-18 18:33 | NUR ---
NURSE NOTES: Left message to Dr Landin , regarding pts home medication. waiting for call back.
--- NOTE | 2019-06-18 19:45 | NUR ---
NURSE NOTES: Patient in bed awake and oriented. VSS. No SOB noted. 8/10 RLQ abdominal pain per patient. PRN pain medication given. No adverse reaction. Medication tolerated well. Will reasses in 30 mins. No signs of distress noted. Needs attended. Call light within reach. In stable condition.
--- NOTE | 2019-06-18 19:51 | NUR ---
HAND-OFF: Report given to Toby ROSAS.
[2019-06-18 20:00] VITALS: BP 119/63
[2019-06-18] MEDS: HYDROmorphone 1mg/ml Carpuject IVP PRN (20:20)
[2019-06-19] VITALS (7 sets, daily range): BP systolic 102–116; BP diastolic 61–75
[2019-06-19] MEDS: HYDROmorphone 1mg/ml Carpuject IVP PRN ×4 (00:47→11:47)
--- NOTE | 2019-06-19 06:08 | Hematology/Onc Progress Note ---
Assessment/Plan Status Narrative # Retroperitoneal mass compressing colon. No obstruction of colon. CT abdomen with 6 x 8.0 x 10.4 cm hyperdense mass of the posterior lateral wall of the ascending colon. Narrowing of the colonic lumen without obstruction. Small hyperdense fluid along the right paracolic gutter and in the pelvis may be hemorrhagic. Findings worrisome for neoplasm, possibly hemorrhagic. Differential may include hemorrhage or infection of a duplication cyst. --> Surgery eval and imaging noted --> as per surg may need trans to oc if requires surg, have dw pcp --> at some point may consider reimaging --> tumor markers ordered cea 1.6 --> given avascular aspect, will recommend with ct in 3-4 weeks to reimage, and further eval as needed after --> have dw pcp and surg # Anemia, normocytic of iron deficiency --> hgb trend 13-->12 --> hold off on w/u unless downtrends --> r/o bleed into tumor --> given low ferritin started on po iron and colace # HIV x 7 yeasr --> Continue Genyova CASTILLO per home medication --> Check CD4 and viral load # Borderline Hypokalemia - resolved --> k given --> as needed, get bmp # Dvt ppx NO Anticoagulation ordered due to risk for hemorrhage in unknown abdominal mass --> scds Appreciate consultation, RAD RN. Subjective Constitutional: Denies: no symptoms, chills, fever, malaise, weakness, other HEENT: Denies: no symptoms, eye pain, blurred vision, tearing, double vision, ear pain, ear discharge, nose pain, nose congestion, throat pain, throat swelling, mouth pain, mouth swelling, other Cardiovascular: Denies: no symptoms, chest pain, edema, irregular heart rate, lightheadedness, palpitations, syncope, other Respiratory: Denies: no symptoms, cough, shortness of breath, SOB with excertion, SOB at rest, sputum, wheezing, other Gastrointestinal/Abdominal: Denies: no symptoms, abdomen distended, abdominal pain, black stools, tarry stools, blood in stool, constipated, diarrhea, difficulty swallowing, nausea, poor appetite, poor fluid intake, rectal bleeding , vomiting, other Genitourinary: Denies: no symptoms, burning, discharge, frequency, flank pain, hematuria, incontinence, pain, urgency, other Endocrine: Denies: no symptoms, excessive sweating, flushing, intolerance to cold, intolerance to heat, increased hunger, increased thirst, increased urine, unexplained weight gain, unexplained weight loss, other Allergies: Coded Allergies: No Known Allergies (Unverified , 06/16/19) Subjective 06/19: less abd pain, does not recall all his hiv meds, imaging noted and dw patient Objective Objective Current Medications Medications (Trade) Dose Ordered Sig/Nikki Route PRN Reason Start Time Stop Time Status Last Admin Dose Admin Acetaminophen (Tylenol) 650 mg Q4H PRN ORAL Mild Pain (Pain Scale 1-3) 06/16/19 14:02 07/16/19 14:01 Dextrose (Dextrose 50%) 25 ml Q30M PRN IV Hypoglycemia 06/16/19 14:00 07/16/19 13:59 Dextrose (Dextrose 50%) 50 ml Q30M PRN IV Hypoglycemia 06/16/19 14:00 07/16/19 13:59 Gadobutrol (Gadavist) 7.5 mmol NOW PRN IV Radiology Procedure 06/17/19 12:45 06/21/19 12:39 Hydromorphone HCl (Dilaudid) 0.5 mg Q3H PRN IVP MODERATE PAIN 06/16/19 14:15 06/23/19 13:59 06/18/19 15:54 Hydromorphone HCl (Dilaudid) 1 mg Q3H PRN IVP SEVERE PAIN 06/16/19 14:15 06/23/19 13:59 06/19/19 04:43 Lorazepam (Ativan) 1 mg Q8H PRN ORAL For Anxiety 06/16/19 14:00 06/23/19 13:59 Non-Formulary Medication (Non-Formulary Med) 1 ea DAILY ORAL 06/17/19 09:00 07/17/19 08:59 UNV Ondansetron HCl (Zofran) 4 mg Q6H PRN IVP Nausea & Vomiting 06/16/19 14:00 07/16/19 13:59 Pantoprazole (Protonix) 40 mg DAILY ORAL 06/17/19 09:00 07/17/19 08:59 06/17/19 08:20 Sodium Chloride 1,000 ml @ 50 mls/hr Q20H IV 06/17/19 13:30 07/17/19 13:29 06/19/19 00:46 Temazepam (Restoril) 15 mg HSPRN PRN ORAL Insomnia 06/16/19 14:00 06/23/19 13:59 Last 24 Hour Vital Signs Date Time Temp Pulse Resp B/P (MAP) Pulse Ox O2 Delivery O2 Flow Rate FiO2 06/19/19 04:00 98.4 71 18 115/69 (84) 97 06/19/19 00:00 97.9 72 18 102/63 (76) 98 06/18/19 21:00 Room Air 06/18/19 20:00 98.1 68 18 119/63 (81) 97 06/18/19 16:24 97.5 06/18/19 16:00 97.5 64 18 138/67 (90) 95 06/18/19 12:00 98.2 68 20 106/66 (79) 96 06/18/19 09:00 Room Air 06/18/19 08:00 98.6 80 20 117/71 (86) 96 06/18/19 04:11 98.6 84 20 102/66 (78) 97 06/18/19 00:00 98.2 69 18 114/64 (81) 96 06/17/19 21:00 Room Air 06/17/19 20:18 98.2 74 20 124/63 (83) 96 06/17/19 16:00 97.7 77 17 127/75 (92) 98 06/17/19 12:00 98.0 76 17 107/66 (80) 97 06/17/19 09:00 Room Air 06/17/19 08:00 98.2 89 17 132/84 (100) 95 Intake and Output 06/18/19 06/19/19 19:00 07:00 Intake Total 1030 ml 1050 ml Balance 1030 ml 1050 ml Intake Oral 480 ml 600 ml IV Total 550 ml 450 ml # Voids 4 2 Labs Test 06/16/19 08:20 06/16/19 08:32 06/17/19 07:07 06/18/19 09:15 White Blood Count 8.5 K/UL (4.8-10.8) 6.5 K/UL (4.8-10.8) 6.6 K/UL (4.8-10.8) Red Blood Count 4.14 M/UL (4.70-6.10) 3.64 M/UL (4.70-6.10) 3.74 M/UL (4.70-6.10) Hemoglobin 13.4 G/DL (14.2-18.0) 11.7 G/DL (14.2-18.0) 12.0 G/DL (14.2-18.0) Hematocrit 36.3 % (42.0-52.0) 32.5 % (42.0-52.0) 33.0 % (42.0-52.0) Mean Corpuscular Volume 88 FL (80-99) 89 FL (80-99) 88 FL (80-99) Mean Corpuscular Hemoglobin 32.3 PG (27.0-31.0) 32.2 PG (27.0-31.0) 32.2 PG (27.0-31.0) Mean Corpuscular Hemoglobin Concent 36.8 G/DL (32.0-36.0) 36.1 G/DL (32.0-36.0) 36.4 G/DL (32.0-36.0) Red Cell Distribution Width 10.6 % (11.6-14.8) 9.8 % (11.6-14.8) 10.2 % (11.6-14.8) Platelet Count 183 K/UL (150-450) 159 K/UL (150-450) 179 K/UL (150-450) Mean Platelet Volume 10.3 FL (6.5-10.1) 9.2 FL (6.5-10.1) 9.0 FL (6.5-10.1) Neutrophils (%) (Auto) 58.2 % (45.0-75.0) 59.5 % (45.0-75.0) 65.3 % (45.0-75.0) Lymphocytes (%) (Auto) 31.0 % (20.0-45.0) 28.0 % (20.0-45.0) 23.3 % (20.0-45.0) Monocytes (%) (Auto) 9.3 % (1.0-10.0) 10.2 % (1.0-10.0) 7.8 % (1.0-10.0) Eosinophils (%) (Auto) 0.6 % (0.0-3.0) 1.1 % (0.0-3.0) 2.1 % (0.0-3.0) Basophils (%) (Auto) 0.9 % (0.0-2.0) 1.2 % (0.0-2.0) 1.4 % (0.0-2.0) Urine Color Yellow Urine Appearance Clear Urine pH 6.5 (4.5-8.0) Urine Specific [place] 1.015 (1.005-1.035) Urine Protein 1+ (NEGATIVE) Urine Glucose (UA) Negative (NEGATIVE) Urine Ketones 1+ (NEGATIVE) Urine Blood Negative (NEGATIVE) Urine Nitrite Negative (NEGATIVE) Urine Bilirubin Negative (NEGATIVE) Urine Urobilinogen 1 MG/DL (0.0-1.0) Urine Leukocyte Esterase 1+ (NEGATIVE) Urine RBC 0 /HPF (0 - 0) Urine WBC 2-4 /HPF (0 - 0) Urine Squamous Epithelial Cells Occasional /LPF Urine Bacteria Occasional /HPF (NONE) Carcinoembryonic Antigen 1.6 ng/mL (0.0-4.7) Sodium Level 139 MMOL/L (136-145) 140 MMOL/L (136-145) 137 MMOL/L (136-145) Potassium Level 3.4 MMOL/L (3.5-5.1) 3.9 MMOL/L (3.5-5.1) 3.7 MMOL/L (3.5-5.1) Chloride Level 101 MMOL/L (98-107) 105 MMOL/L (98-107) 101 MMOL/L (98-107) Carbon Dioxide Level 29 MMOL/L (21-32) 26 MMOL/L (21-32) 27 MMOL/L (21-32) Anion Gap 9 mmol/L (5-15) 9 mmol/L (5-15) 9 mmol/L (5-15) Blood Urea Nitrogen 19 mg/dL (7-18) 8 mg/dL (7-18) 9 mg/dL (7-18) Creatinine 0.8 MG/DL (0.55-1.30) 0.7 MG/DL (0.55-1.30) 0.8 MG/DL (0.55-1.30) Estimat Glomerular Filtration Rate > 60 mL/min (>60) > 60 mL/min (>60) > 60 mL/min (>60) Glucose Level 124 MG/DL (74-106) 101 MG/DL (74-106) 99 MG/DL (74-106) Calcium Level 8.8 MG/DL (8.5-10.1) 8.5 MG/DL (8.5-10.1) 9.0 MG/DL (8.5-10.1) Total Bilirubin 0.8 MG/DL (0.2-1.0) 0.8 MG/DL (0.2-1.0) Aspartate Amino Transf (AST/SGOT) 24 U/L (15-37) 26 U/L (15-37) Alanine Aminotransferase (ALT/SGPT) 69 U/L (12-78) 63 U/L (12-78) Alkaline Phosphatase 77 U/L (46-116) 63 U/L (46-116) Total Protein 7.7 G/DL (6.4-8.2) 7.1 G/DL (6.4-8.2) Albumin 3.8 G/DL (3.4-5.0) 3.4 G/DL (3.4-5.0) Globulin 3.9 g/dL 3.7 g/dL Albumin/Globulin Ratio 1.0 (1.0-2.7) 0.9 (1.0-2.7) Lipase 170 U/L (73-393) Erythrocyte Sedimentation Rate 29 MM/HR (0-15) Prothrombin Time 10.0 SEC (9.30-11.50) Prothromb Time International Ratio 0.9 (0.9-1.1) Activated Partial Thromboplast Time 28 SEC (23-33) C-Reactive Protein, Quantitative 3.7 mg/dL (0.00-0.90) Amylase Level 54 U/L (25-115) Phosphorus Level 3.8 MG/DL (2.5-4.9) Magnesium Level 1.8 MG/DL (1.8-2.4) Height (Feet): 5 Height (Inches): 1.00 Weight (Pounds): 135 Objective General Appearance: WD/WN, no apparent distress EENT: PERRL/EOMI, normal ENT inspection Neck: non-tender, normal alignment, supple Cardiovascular: normal peripheral pulses, normal rate, regular rhythm Respiratory/Chest: chest wall non-tender, lungs clear Abdomen: normal bowel sounds - Soft, nondistended Extremities: normal range of motion, non-tender 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
--- NOTE | 2019-06-19 07:30 | NUR ---
NURSE NOTES: Received report from RALPH Galvan. Pt is A/Ox4, on RA, eating breakfast. IV site intact and running fluids. Pain level at 6, RN will provide pain med. No other apparent distress noted. Bed locked in lowest position, side rails up, call light within reach.
[2019-06-19 07:33] LABS: BASOPHILS % (AUTO) 1.1 % (0.0-2.0); EOSINOPHILS % (AUTO) 4.1 % (0.0-3.0); HEMATOCRIT 35.8 % (42.0-52.0); HEMOGLOBIN 12.7 G/DL (14.2-18.0); LYMPHOCYTES % (AUTO) 28.2 % (20.0-45.0); MEAN CORPUSCULAR VOLUME 91 FL (80-99); MONOCYTES % (AUTO) 8.1 % (1.0-10.0); NEUTROPHILS % (AUTO) 58.5 % (45.0-75.0); PLATELET COUNT 211 K/UL (150-450); RED BLOOD COUNT 3.94 M/UL (4.70-6.10); RED CELL DISTRIBUTION WIDTH 10.5 % (11.6-14.8); WHITE BLOOD COUNT 5.6 K/UL (4.8-10.8)
[2019-06-19 08:16] LABS: % IRON SATURATION 10 % (15-50); IRON 35 ug/dL (50-175); TOTAL IRON BINDING CAPACITY 361 ug/dL (250-450)
[2019-06-19 08:18] LABS: ANION GAP 9 mmol/L (5-15); BLOOD UREA NITROGEN 9 mg/dL (7-18); CARBON DIOXIDE 28 MMOL/L (21-32); CHLORIDE 102 MMOL/L (98-107); CREATININE 0.8 MG/DL (0.55-1.30); FERRITIN 126 NG/ML (8-388); POTASSIUM 3.9 MMOL/L (3.5-5.1); SODIUM 139 MMOL/L (136-145)
--- NOTE | 2019-06-19 10:53 | NUR ---
NURSE NOTES: Notified Dr. Stone of pt's low iron level and asked about the Fine Needle Aspiration procedure. He said to hold off for now. Dr. Whelan and Dr. Stone discussing about the next step.
[2019-06-19] MEDS ORDERED: Docusate 100mg cap ORAL PRN (11:30)
--- NOTE | 2019-06-19 12:14 | Surgery Progress Note ---
Surgery Progress Note Subjective Symptoms: improved, tolerating diet, voiding well, passing flatus, BM, pain decreased Additional Comments no acute events MRI/CT/US reviewed discussed with radiology, PCP and heme/onc discussed with patient at bedside Objective Last 24 Hour Vital Signs Date Time Temp Pulse Resp B/P (MAP) Pulse Ox O2 Delivery O2 Flow Rate FiO2 06/19/19 09:00 Room Air 06/19/19 08:00 98.3 76 17 108/61 (77) 95 06/19/19 04:00 98.4 71 18 115/69 (84) 97 06/19/19 00:00 97.9 72 18 102/63 (76) 98 06/18/19 21:00 Room Air 06/18/19 20:00 98.1 68 18 119/63 (81) 97 06/18/19 16:24 97.5 06/18/19 16:00 97.5 64 18 138/67 (90) 95 I&O Intake and Output 06/18/19 06/19/19 19:00 07:00 Intake Total 1030 ml 1100 ml Balance 1030 ml 1100 ml Intake Oral 480 ml 600 ml IV Total 550 ml 500 ml # Voids 4 2 Cardiovascular: RSR Respiratory: clear Abdomen: soft, tenderness, present bowel sounds, non-distended Extremities: no edema, no tenderness, no cyanosis Laboratory Tests Test 06/19/19 06:06 White Blood Count Pending Red Blood Count 3.94 M/UL (4.70-6.10) L Hemoglobin 12.7 G/DL (14.2-18.0) L Hematocrit 35.8 % (42.0-52.0) L Mean Corpuscular Volume 91 FL (80-99) Mean Corpuscular Hemoglobin 32.2 PG (27.0-31.0) H Mean Corpuscular Hemoglobin Concent 35.4 G/DL (32.0-36.0) Red Cell Distribution Width 10.5 % (11.6-14.8) L Platelet Count 211 K/UL (150-450) Mean Platelet Volume 8.8 FL (6.5-10.1) Neutrophils (%) (Auto) 58.5 % (45.0-75.0) Lymphocytes (%) (Auto) 28.2 % (20.0-45.0) Monocytes (%) (Auto) 8.1 % (1.0-10.0) Eosinophils (%) (Auto) 4.1 % (0.0-3.0) H Basophils (%) (Auto) 1.1 % (0.0-2.0) Lymphocytes Pending Sodium Level 139 MMOL/L (136-145) Potassium Level 3.9 MMOL/L (3.5-5.1) Chloride Level 102 MMOL/L (98-107) Carbon Dioxide Level 28 MMOL/L (21-32) Anion Gap 9 mmol/L (5-15) Blood Urea Nitrogen 9 mg/dL (7-18) Creatinine 0.8 MG/DL (0.55-1.30) Estimat Glomerular Filtration Rate > 60 mL/min (>60) Glucose Level 92 MG/DL (74-106) Calcium Level 9.0 MG/DL (8.5-10.1) Iron Level 35 ug/dL (50-175) L Total Iron Binding Capacity 361 ug/dL (250-450) Percent Iron Saturation 10 % (15-50) L Unsaturated Iron Binding 326 ug/dL (112-346) Ferritin 126 NG/ML (8-388) Percent CD3 Cells Pending Absolute CD3 Count Pending Percent CD4 Cells Pending Absolute CD4 Count Pending T-Lymphocyte CD4/CD8 Ratio Pending Percent CD8 Cells Pending Absolute CD8 Count Pending HIV-1 RNA (PCR) log10 Value Pending HIV-1 RNA Ultraquantitative (PCR) Pending Plan Problems: (1) Abdominal pain Assessment & Plan: This is a 28-year-old male with acute onset right lower quadrant abdominal pain x1 day. No nausea vomiting fever chills. Labs normal. CT scan with normal appendix but abnormal mass versus cystic collection in the ascending colon. CT noted US noted MRI noted Impression: 6.3 x 7.3 x 6.2 cm mass in the posterior wall of the ascending colon , as described and corresponding with findings demonstrated on recent CT scan. No significant enhancement demonstrated. Foci of high signal on the dual echo and LAVA FLEX images suggest internal hemorrhage. Differential considerations include hypovascular neoplasm such as a mesenchymal tumor, hemorrhagic duplication cyst or other cysts, or spontaneous intramural hematoma.Note that the high attenuation fluid, presumably blood, extending from this along the retroperitoneum into the pelvis is not well-demonstrated on this exam. MRI/CT/US reviewed discussed with radiology, PCP and heme/onc discussed with patient at bedside given hypovascular/avascular, high attenuation fluid, acute onset and no prior symptoms until day of admission this clinically seems to be likely hemorrhage. possible hemorrhagic duplication cyst vs cyst vs spont intramural hematoma. h/ h stable, exam stable and improving. would recommend re-imaging in a 4 weeks to evaluate if resolving. if not, then would consider major surgery for excisional biopsy no acute surgical intervention planned at this time Thank you with follow with recommendations Juan Alberto Lopez Jun 19, 2019 12:14
[2019-06-19] MEDS ORDERED: HYDROcodone/Acetamin 5/325 tab ORAL PRN (12:45)
--- NOTE | 2019-06-19 12:47 | General Progress Note ---
Assessment/Plan Problem List: (1) Abdominal mass ICD Codes: R19.00 - Intra-abdominal and pelvic swelling, mass and lump, unspecified site SNOMED: 932805019 (2) Abdominal pain ICD Codes: R10.9 - Unspecified abdominal pain SNOMED: 09128109 (3) HIV (human immunodeficiency virus infection) ICD Codes: B20 - Human immunodeficiency virus [HIV] disease SNOMED: 16787571 (4) Normocytic anemia ICD Codes: D64.9 - Anemia, unspecified SNOMED: 031551350 (5) Hypokalemia ICD Codes: E87.6 - Hypokalemia SNOMED: 68887534 Status: stable, not improved Assessment/Plan: 28 y/o M from [facility] with HIV x 7 years on CASTILLO compliant who is admitted with severe abdominal pain. # Acute abdominal pain 2/2 large retroperitoneal mass compressing colon. No obstruction of colon. Suspect ruptured cyst with hematoma per general surgery and hematology/oncology #iron deficiency anemia , normocytic- stable. CT abdomen with 6 x 8.0 x 10.4 cm hyperdense mass of the posterior lateral wall of the ascending colon. Narrowing of the colonic lumen without obstruction. Small hyperdense fluid along the right paracolic gutter and in the pelvis may be hemorrhagic. Findings worrisome for neoplasm, possibly hemorrhagic. Differential may include hemorrhage or infection of a duplication cyst. > US abdomen reviewed and MRI w w/o contrast 06/18/19- redemonstrated above mass suspect hemorrhagic cyst - Surgery consultation with Dr. Lopez. -No biopsy or surgical intervention for now. Pain control and repeat CT in 4-6 weeks - Full liquid diet for now, pending, advance as tolerated - Tylenol 650mg PO Q6hr PRN for mild pain, [place] 5/325mg PO Q6hr PRN for moderate pain, norco 10/325mg PO Q6hr PRN for severe pain, dilaudid 0.5mg IV Q3hr PRN for breakthrough pain - IVF low rate as he is taking oral diet. -Continue to trend CBC daily - Start FeSO4 325mg PO daily # HIV - Continue Genyova CASTILLO per home medication - Follow up CD4 and viral load # Borderline Hypokalemia - resolved - IVF with KCL 20 meq ordered yesterday and stable now. - Monitor BMP as needed. Will not order labs for tomorrow as stable. #iron deficiency anemia > % sat 10, ferritin 120 - trend CBC # NO Anticoagulation ordered due to risk for hemorrhage in unknown abdominal mass - Patient is ambulatory and low risk for DVT FENPPX DVTPPX: SCDs GI PPX: none needed Fluids: 1/2 NS @ 50 cc/hr Diet: Full liquid diet, advance as tolerated Lines: peripheral PT/OT: ordered Code status: Full code Dispo: home vs. snf Reason for Continued Hospitalization: Abdominal mass, hemorragic. Monitor CBC and pain control 40 minutes spent on this encounter. Discussed with RN, patient, general surgery , and hematology/oncology. > 50% spent on counseling and care coordination. Time of note may not reflect time patient was seen. Subjective Date patient seen: Jun 19, 2019 Constitutional: Denies: chills, diaphoresis, fever, malaise, weakness, other HEENT: Denies: eye pain, blurred vision, tearing, double vision, ear pain, ear discharge, nose pain, nose congestion, throat pain, throat swelling, mouth pain , mouth swelling, other Cardiovascular: Denies: chest pain, edema, irregular heart rate, lightheadedness, palpitations, syncope, other Respiratory: Denies: cough, orthopnea, shortness of breath, SOB with excertion , SOB at rest, sputum, stridor, wheezing, other Gastrointestinal/Abdominal: Denies: abdomen distended, abdominal pain, black stools, tarry stools, blood in stool, constipated, diarrhea, difficulty swallowing, nausea, poor appetite, poor fluid intake, rectal bleeding, vomiting , other Genitourinary: Denies: burning, discharge, frequency, flank pain, hematuria, incontinence, pain, urgency, other Neurologic/Psychiatric: Denies: anxiety, depressed, emotional problems, headache, numbness, paresthesia, pre-existing deficit, seizure, tingling, tremors, weakness, other Endocrine: Denies: excessive sweating, flushing, intolerance to cold, intolerance to heat, increased hunger, increased thirst, increased urine, unexplained weight gain, unexplained weight loss, other Hematologic/Lymphatic: Denies: anemia, easy bleeding, easy bruising, other Allergies: Coded Allergies: No Known Allergies (Unverified , 06/16/19) Subjective No acute events overnight per nursing. Patient's pain is persistent. Pain is constant, described as sharp, 6 out of 10. Using dilaudid 7x in past 24 hours. Patient denies any fevers, chills, cough, chest pain, or shortness of breath. + flatus and BM Objective Last 24 Hour Vital Signs Date Time Temp Pulse Resp B/P (MAP) Pulse Ox O2 Delivery O2 Flow Rate FiO2 06/19/19 09:00 Room Air 06/19/19 08:00 98.3 76 17 108/61 (77) 95 06/19/19 04:00 98.4 71 18 115/69 (84) 97 06/19/19 00:00 97.9 72 18 102/63 (76) 98 06/18/19 21:00 Room Air 06/18/19 20:00 98.1 68 18 119/63 (81) 97 06/18/19 16:24 97.5 06/18/19 16:00 97.5 64 18 138/67 (90) 95 Intake and Output 06/18/19 06/19/19 19:00 07:00 Intake Total 1030 ml 1100 ml Balance 1030 ml 1100 ml Intake Oral 480 ml 600 ml IV Total 550 ml 500 ml # Voids 4 2 Laboratory Tests 06/19/19 06:06: White Blood Count [Pending], Red Blood Count 3.94L, Hemoglobin 12.7L, Hematocrit 35.8L, Mean Corpuscular Volume 91, Mean Corpuscular Hemoglobin 32.2H , Mean Corpuscular Hemoglobin Concent 35.4, Red Cell Distribution Width 10.5L, Platelet Count 211, Mean Platelet Volume 8.8, Neutrophils (%) (Auto) 58.5, Lymphocytes (%) (Auto) 28.2, Monocytes (%) (Auto) 8.1, Eosinophils (%) (Auto) 4.1H, Basophils (%) (Auto) 1.1, Lymphocytes [Pending], Sodium Level 139, Potassium Level 3.9, Chloride Level 102, Carbon Dioxide Level 28, Anion Gap 9, Blood Urea Nitrogen 9, Creatinine 0.8, Estimat Glomerular Filtration Rate > 60, Glucose Level 92, Calcium Level 9.0, Iron Level 35L, Total Iron Binding Capacity 361, Percent Iron Saturation 10L, Unsaturated Iron Binding 326, Ferritin 126, Percent CD3 Cells [Pending], Absolute CD3 Count [Pending], Percent CD4 Cells [Pending], Absolute CD4 Count [Pending], T-Lymphocyte CD4/CD8 Ratio [Pending], Percent CD8 Cells [Pending], Absolute CD8 Count [Pending], HIV- 1 RNA (PCR) log10 Value [Pending], HIV-1 RNA Ultraquantitative (PCR) [Pending] IMAGING, reviewed Abdominal ultrasound 06/16/2019 IMPRESSION: 1. 7 x 6.8 cm complex mass inferior to the liver without vascularity. Trace free fluid in Morison's pouch. 2. 2.2 cm anechoic left renal cyst. CT abdomen pelvis 06/16/2019 IMPRESSION: 6 x 8.0 x 10.4 cm hyperdense mass of the posterior lateral wall of the ascending colon. Narrowing of the colonic lumen witho imaging ut obstruction. Small hyperdense fluid along the right paracolic gutter and in the pelvis may be hemorrhagic. Findings worrisome for neoplasm, possibly hemorrhagic. Differential may include hemorrhage or infection of a duplication cyst. MRI abdomen pelvis 06/18/2019 Impression: 6.3 x 7.3 x 6.2 cm mass in the posterior wall of the ascending colon , as described and corresponding with findings demonstrated on recent CT scan. No significant enhancement demonstrated. Foci of high signal on the dual echo and LAVA FLEX images suggest internal hemorrhage. Differential considerations include hypovascular neoplasm such as a mesenchymal tumor, hemorrhagic duplication cyst or other cysts, or spontaneous intramural hematoma. Note that the high attenuation fluid, presumably blood, extending from this along the retroperitoneum into the pelvis is not well-demonstrated on this exam. No other significant abnormality demonstrated Height (Feet): 5 Height (Inches): 1.00 Weight (Pounds): 135 General Appearance: WD/WN, no apparent distress, alert, lethargic EENT: PERRL/EOMI, normal ENT inspection Neck: non-tender, normal alignment, supple Cardiovascular: normal peripheral pulses, normal rate, regular rhythm, no JVD Respiratory/Chest: chest wall non-tender, lungs clear, normal breath sounds Abdomen: normal bowel sounds, other - Nondistended, tenderness to palpation in right lower quadrant without guarding or rebound. 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 Jun 19, 2019 12:47
[2019-06-19] MEDS: Docusate 100mg cap ORAL SCH ×2 (13:03→18:10)
--- NOTE | 2019-06-19 14:10 | NUR ---
Pt complained of itchiness on abdomen and back area. RN called Dr. Serrano's office and left message to NATALIA.
--- NOTE | 2019-06-19 14:15 | NUR ---
Received call from Dr. Escalante. ordered Benadryl for pt's itchiness. RN will follow.
--- NOTE | 2019-06-19 14:50 | NUR ---
RN called Dr. Serrano's office and left a message to Mack regarding pt taking his own medication, Genvoya. RN asked if it would be okay to continue to take his own med when his friend brings med to hospital.
--- NOTE | 2019-06-19 15:05 | NUR ---
Dr. Rodriguez said ok to continue pt's own meds, Genvoya.
--- NOTE | 2019-06-19 15:51 | NUR ---
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 98.9 HR 110 RR 18 B/P 140/80 K 3.4 BUN 19 ABD/PEL CT=6 x 8.0 x 10.4 cm hyperdense mass of the posterior lateral wall of the ascending colon. Narrowing of the colonic lumen without obstruction. Small hyperdense fluid along the right paracolic gutter and in the pelvis IS: REGLAN IV TORADOL IV IV BOLUS NS X 1 LITER ADMITTED TO MED/SURG @ 7664 MED/SURG STATUS DCP RETURN HOME
[2019-06-19] MEDS: HYDROcodone/Acetamin 10/325 tab ORAL PRN (16:30)
[2019-06-19] MEDS: Hydromorphone 0.5mg/0.5ml inj IVP PRN ×2 (18:10→22:06)
--- NOTE | 2019-06-19 19:38 | NUR ---
HAND-OFF: Report given to RALPH Goodwin.
--- NOTE | 2019-06-19 19:46 | NUR ---
NURSE NOTES: Received patient awake in bed, able to verbalize needs, talking on cellphone. No c/o pain at this time. IV access patent, running IVF maintenance. Bed low and locked.
[2019-06-20] VITALS: BP 119/65
[2019-06-20] MEDS: Hydromorphone 0.5mg/0.5ml inj IVP PRN ×3 (00:59→11:44)
[2019-06-20 04:00] VITALS: BP 123/62
[2019-06-20] MEDS: HYDROcodone/Acetamin 10/325 tab ORAL PRN (05:16)
[2019-06-20 05:38] VITALS: BP 123/62
--- NOTE | 2019-06-20 07:30 | NUR ---
HAND-OFF: Report given to RALPH Arcos.
--- NOTE | 2019-06-20 07:35 | NUR ---
NURSE NOTES: Patient is in bed,A&o x4, not in acute respiratory/cardiac distress. Complains of mild pain on right lower abdomen. Will continue to monitor pain and do pain management. IV intact, n s/s of infiltration. Flatus present and denies nausea or vomiting, tolerated well to regular diet. RN reminded patient to ask his friend to bring the medication. Patient stated that his friend will bring the med today. Will follow up. Bed is in lowest position and locked. Call light within reach. Will continue plan of care.
[2019-06-20 07:57] LABS: BASOPHILS % (AUTO) 0.7 % (0.0-2.0); EOSINOPHILS % (AUTO) 3.1 % (0.0-3.0); HEMATOCRIT 34.1 % (42.0-52.0); HEMOGLOBIN 12.2 G/DL (14.2-18.0); LYMPHOCYTES % (AUTO) 18.7 % (20.0-45.0); MEAN CORPUSCULAR VOLUME 90 FL (80-99); MONOCYTES % (AUTO) 8.5 % (1.0-10.0); PLATELET COUNT 221 K/UL (150-450); RED BLOOD COUNT 3.77 M/UL (4.70-6.10); RED CELL DISTRIBUTION WIDTH 10.7 % (11.6-14.8); WHITE BLOOD COUNT 7.8 K/UL (4.8-10.8)
[2019-06-20 08:00] VITALS: BP 117/61
[2019-06-20 08:28] LABS: ANION GAP 9 mmol/L (5-15); BLOOD UREA NITROGEN 12 mg/dL (7-18); CALCIUM 8.9 MG/DL (8.5-10.1); CARBON DIOXIDE 28 MMOL/L (21-32); CHLORIDE 102 MMOL/L (98-107); CREATININE 0.8 MG/DL (0.55-1.30); POTASSIUM 3.9 MMOL/L (3.5-5.1); SODIUM 139 MMOL/L (136-145)
[2019-06-20] MEDS: Docusate 100mg cap ORAL SCH (08:35)
--- NOTE | 2019-06-20 10:35 | NUR ---
NURSE NOTES: Patient is in bed and friend @ the bedside. Patient verbalized that even though he took pain meds, his pain is still 8-9 when in bed. Patient's pain meds has been changed from IV to po and IV diludid for break through yesterday.. Rn explained to the patient about the changes. Patient wants to talk to the doctor to know what's the plan of care. RN paged Dr. Serrano's covering, c/o [place]. Awaiting for return call.
--- NOTE | 2019-06-20 11:23 | NUR ---
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 97.7 HR 82 RR 17 B/P 123/62 RA 98% IS; IVF NS @ 50ML/HR PROTONIX DILAUDID IV PERCOCET PO REGULAR DIET MED/SURG STATUS
[2019-06-20] MEDS ORDERED: oxyCODONE HCL/Acetaminophen 5/325mg ORAL PRN (11:30)
--- NOTE | 2019-06-20 11:54 | NUR ---
P.T Note: P.T evaluation completed. Pt is alert, O x 4 and cooperative. Pt even though presenting c/o abdomen is independent with ADL/functional mobility and gait/locomotion. Current functional status does not warrant skilled P.T service at this time. Encouraged pt OOB activities VS bedrest unless, otherwise ordered. DC P.T services. thank you for this referral.
--- NOTE | 2019-06-20 12:54 | NUR ---
NURSE NOTES: pt dr Adan alvarenga md talked to patient and patient's friend. instructed patient to follow up with pmd re argelia doyle with verbalized understanding. Addendum: 06/20/19 at 1256 by REBA ROSA RN arm band removed, pt has all belongings, iv removed from right ac
--- NOTE | 2019-06-20 12:55 | NUR ---
NURSE NOTES: patient left the facility AMA. Prior to leaving the hospital patient talked to doctor Adan Serrano's covering doctor on the phone and Explained about the benefits and risks and pain management. Patient still wanted to leave the hospital. RN also explained about AMA. Patient fully understood about AMA and risks and benefits. Patient did not complain about care but wanted to go home. Patient's friend accompanied by patient. All belongings accounted for and he brought all his belongings, IV and ID were removed, no s/s of infection IV removal site. No skin issue. Reminded patient to follow up with his primary doctor. V/S stable, no episodes of nausea or vomiting or bleeding.
--- NOTE | 2019-06-20 15:10 | Surgery Progress Note ---
Surgery Progress Note Subjective Additional Comments Patient admitted that he may have been having this for significant longer potentially weeks to months. Unfortunately given these findings is really difficult to tell when truly patient had this history and anxiety work-up prior any prior imaging Tolerating diet no nausea vomiting fever chills labs noted Objective Last 24 Hour Vital Signs Date Time Temp Pulse Resp B/P (MAP) Pulse Ox O2 Delivery O2 Flow Rate FiO2 06/20/19 11:04 Room Air 06/20/19 09:00 Room Air 06/20/19 08:00 98.7 77 18 117/61 (79) 97 06/20/19 05:46 97.7 06/20/19 05:38 97.7 82 17 123/62 (82) 96 06/20/19 04:00 97.7 82 17 123/62 (82) 96 06/20/19 01:29 98.4 06/20/19 00:00 98.4 75 17 119/65 (83) 96 06/19/19 20:57 Room Air 06/19/19 20:00 98.3 77 18 113/68 (83) 96 06/19/19 18:10 97.7 74 20 116/66 (83) 96 06/19/19 16:00 97.6 66 17 105/74 (84) 96 I&O Intake and Output 06/19/19 06/20/19 19:00 07:00 Intake Total 480 ml 550 ml Output Total 300 ml Balance 480 ml 250 ml Intake Oral 480 ml 250 ml IV Total 300 ml Emesis 300 ml # Voids 4 2 Cardiovascular: RSR Respiratory: clear Abdomen: soft, flat, tenderness, present bowel sounds, non-distended Extremities: no edema, no tenderness, no cyanosis Laboratory Tests Test 06/20/19 07:25 White Blood Count 7.8 K/UL (4.8-10.8) Red Blood Count 3.77 M/UL (4.70-6.10) L Hemoglobin 12.2 G/DL (14.2-18.0) L Hematocrit 34.1 % (42.0-52.0) L Mean Corpuscular Volume 90 FL (80-99) Mean Corpuscular Hemoglobin 32.2 PG (27.0-31.0) H Mean Corpuscular Hemoglobin Concent 35.7 G/DL (32.0-36.0) Red Cell Distribution Width 10.7 % (11.6-14.8) L Platelet Count 221 K/UL (150-450) Mean Platelet Volume 7.9 FL (6.5-10.1) Neutrophils (%) (Auto) 69.0 % (45.0-75.0) Lymphocytes (%) (Auto) 18.7 % (20.0-45.0) L Monocytes (%) (Auto) 8.5 % (1.0-10.0) Eosinophils (%) (Auto) 3.1 % (0.0-3.0) H Basophils (%) (Auto) 0.7 % (0.0-2.0) Sodium Level 139 MMOL/L (136-145) Potassium Level 3.9 MMOL/L (3.5-5.1) Chloride Level 102 MMOL/L (98-107) Carbon Dioxide Level 28 MMOL/L (21-32) Anion Gap 9 mmol/L (5-15) Blood Urea Nitrogen 12 mg/dL (7-18) Creatinine 0.8 MG/DL (0.55-1.30) Estimat Glomerular Filtration Rate > 60 mL/min (>60) Glucose Level 95 MG/DL (74-106) Calcium Level 8.9 MG/DL (8.5-10.1) Plan Problems: (1) Abdominal pain Assessment & Plan: This is a 28-year-old male with acute onset right lower quadrant abdominal pain x1 day. No nausea vomiting fever chills. Labs normal. CT scan with normal appendix but abnormal mass versus cystic collection in the ascending colon. CT noted US noted MRI noted Impression: 6.3 x 7.3 x 6.2 cm mass in the posterior wall of the ascending colon , as described and corresponding with findings demonstrated on recent CT scan. No significant enhancement demonstrated. Foci of high signal on the dual echo and LAVA FLEX images suggest internal hemorrhage. Differential considerations include hypovascular neoplasm such as a mesenchymal tumor, hemorrhagic duplication cyst or other cysts, or spontaneous intramural hematoma.Note that the high attenuation fluid, presumably blood, extending from this along the retroperitoneum into the pelvis is not well-demonstrated on this exam. MRI/CT/US reviewed discussed with radiology, PCP and heme/onc discussed with patient at bedside given hypovascular/avascular, high attenuation fluid, acute onset and no prior symptoms until day of admission this clinically seems to be likely hemorrhage. possible hemorrhagic duplication cyst vs cyst vs spont intramural hematoma. h/ h stable, exam stable and improving. would recommend re-imaging in a 4 weeks to evaluate if resolving. if not, then would consider major surgery for excisional biopsy no acute surgical intervention planned at this time Thank you with follow with recommendations Patient noted that he may have been having this longer than he is told us prior. Maybe is been having it prior to the acute onset of pain that he noted a few days ago. Seems the patient may be malingering or not the complete details of truth to his history. Very difficult to determine exact prior work- up and if so would be very important to know what work-up he said so at least evaluate and this is a with his care plan given a prior CT scan would allow me to notice if this is increase or decrease in size made any changes vascularity changes or further details. Unfortunately patient left AMA hopefully he will follow-up as it was recommended for him Juan Alberto Lopez Jun 20, 2019 15:10
--- NOTE | 2019-06-20 18:52 | General Progress Note ---
Assessment/Plan Problem List: (1) Abdominal mass ICD Codes: R19.00 - Intra-abdominal and pelvic swelling, mass and lump, unspecified site SNOMED: 858220763 (2) Abdominal pain ICD Codes: R10.9 - Unspecified abdominal pain SNOMED: 16046983 (3) HIV (human immunodeficiency virus infection) ICD Codes: B20 - Human immunodeficiency virus [HIV] disease SNOMED: 25065487 (4) Normocytic anemia ICD Codes: D64.9 - Anemia, unspecified SNOMED: 704456692 (5) Hypokalemia ICD Codes: E87.6 - Hypokalemia SNOMED: 41045685 Status: stable, not improved Assessment/Plan: 28 y/o M from [facility] with HIV x 7 years on CASTILLO compliant who is admitted with severe abdominal pain. # Acute abdominal pain 2/2 large retroperitoneal mass compressing colon. No obstruction of colon. Suspect ruptured cyst with hematoma per general surgery and hematology/oncology #iron deficiency anemia , normocytic- stable. CT abdomen with 6 x 8.0 x 10.4 cm hyperdense mass of the posterior lateral wall of the ascending colon. Narrowing of the colonic lumen without obstruction. Small hyperdense fluid along the right paracolic gutter and in the pelvis may be hemorrhagic. Findings worrisome for neoplasm, possibly hemorrhagic. Differential may include hemorrhage or infection of a duplication cyst. > US abdomen reviewed and MRI w w/o contrast 06/18/19- redemonstrated above mass suspect hemorrhagic cyst > Patient mentions having the pain for 2 weeks prior to admission > continues to not be obstructed - Surgery consultation with Dr. Lopez. -No biopsy or surgical intervention for now. Pain control and repeat CT in 4-6 weeks - Full liquid diet for now, pending, advance as tolerated -Change to Percocet 5/325 mg p.o. every 6 hours as needed for mild to moderate pain, Percocet 10/325 mg p.o. every 6 hours as needed for severe pain. Continue Dilaudid 0.5 mg IV every 3 hours PRN for breakthrough pain. -Pain management consult - IVF low rate as he is taking oral diet. -Continue to trend CBC daily - Continue FeSO4 325mg PO daily # HIV - Continue Genyova CASTILLO per home medication - Follow up CD4 and viral load # Borderline Hypokalemia - resolved - IVF with KCL 20 meq ordered yesterday and stable now. - Monitor BMP as needed. Will not order labs for tomorrow as stable. #iron deficiency anemia > % sat 10, ferritin 120 - trend CBC - feSO4 as above # NO Anticoagulation ordered due to risk for hemorrhage in unknown abdominal mass - Patient is ambulatory and low risk for DVT FENPPX DVTPPX: SCDs GI PPX: none needed Fluids: 1/2 NS @ 50 cc/hr Diet: Full liquid diet, advance as tolerated Lines: peripheral PT/OT: ordered, can go home with no DME Code status: Full code Dispo: home Reason for Continued Hospitalization: Abdominal mass. Monitor CBC and pain control 38 minutes spent on this encounter. Discussed with RN, patient, general surgery , and pain management. > 50% spent on counseling and care coordination. Time of note may not reflect time patient was seen. Subjective Date patient seen: Jun 20, 2019 Constitutional: Denies: chills, diaphoresis, fever, malaise, weakness, other HEENT: Denies: eye pain, blurred vision, tearing, double vision, ear pain, ear discharge, nose pain, nose congestion, throat pain, throat swelling, mouth pain , mouth swelling, other Cardiovascular: Denies: no symptoms, chest pain, edema, irregular heart rate, lightheadedness, palpitations, syncope, other Respiratory: Denies: cough, orthopnea, shortness of breath, SOB with excertion , SOB at rest, sputum, stridor, wheezing, other Gastrointestinal/Abdominal: Reports: abdominal pain, nausea; Denies: abdomen distended, black stools, tarry stools, blood in stool, constipated, diarrhea, difficulty swallowing, poor appetite, poor fluid intake, rectal bleeding, vomiting, other Genitourinary: Denies: burning, discharge, frequency, flank pain, hematuria, incontinence, pain, urgency, other Neurologic/Psychiatric: Denies: anxiety, depressed, emotional problems, headache, numbness, paresthesia, pre-existing deficit, seizure, tingling, tremors, weakness, other Endocrine: Denies: excessive sweating, flushing, intolerance to cold, intolerance to heat, increased hunger, increased thirst, increased urine, unexplained weight gain, unexplained weight loss, other Hematologic/Lymphatic: Denies: anemia, easy bleeding, easy bruising, other Allergies: Coded Allergies: No Known Allergies (Unverified , 06/16/19) Subjective No acute events overnight per nursing. Patient's pain is persistent. Used IV Dilaudid 0.5 mg 3 times overnight. Use [place]udd[place] 10 2 times overnight. Pain has not improved continues to be described as sharp, 6 out of 10. Patient denies any fevers, chills, cough, chest pain, or shortness of breath. +flatus and BM. Objective Last 24 Hour Vital Signs Date Time Temp Pulse Resp B/P (MAP) Pulse Ox O2 Delivery O2 Flow Rate FiO2 06/20/19 11:04 Room Air 06/20/19 09:00 Room Air 06/20/19 08:00 98.7 77 18 117/61 (79) 97 06/20/19 05:46 97.7 06/20/19 05:38 97.7 82 17 123/62 (82) 96 06/20/19 04:00 97.7 82 17 123/62 (82) 96 06/20/19 01:29 98.4 06/20/19 00:00 98.4 75 17 119/65 (83) 96 06/19/19 20:57 Room Air 06/19/19 20:00 98.3 77 18 113/68 (83) 96 Intake and Output 06/19/19 06/20/19 19:00 07:00 Intake Total 480 ml 550 ml Output Total 300 ml Balance 480 ml 250 ml Intake Oral 480 ml 250 ml IV Total 300 ml Emesis 300 ml # Voids 4 2 Laboratory Tests 06/20/19 07:25: White Blood Count 7.8, Red Blood Count 3.77L, Hemoglobin 12.2L, Hematocrit 34.1L , Mean Corpuscular Volume 90, Mean Corpuscular Hemoglobin 32.2H, Mean Corpuscular Hemoglobin Concent 35.7, Red Cell Distribution Width 10.7L, Platelet Count 221, Mean Platelet Volume 7.9, Neutrophils (%) (Auto) 69.0, Lymphocytes (%) (Auto) 18.7L, Monocytes (%) (Auto) 8.5, Eosinophils (%) (Auto) 3.1H, Basophils (%) (Auto) 0.7, Sodium Level 139, Potassium Level 3.9, Chloride Level 102, Carbon Dioxide Level 28, Anion Gap 9, Blood Urea Nitrogen 12, Creatinine 0.8, Estimat Glomerular Filtration Rate > 60, Glucose Level 95, Calcium Level 8.9 Height (Feet): 5 Height (Inches): 1.00 Weight (Pounds): 135 General Appearance: WD/WN, no apparent distress, mild distress EENT: PERRL/EOMI, normal ENT inspection Neck: non-tender, normal alignment, supple Cardiovascular: normal peripheral pulses, normal rate, regular rhythm, no JVD Respiratory/Chest: chest wall non-tender, lungs clear, normal breath sounds Pelvis: normal external exam, other - Soft nondistended tender to palpation in right lower quadrant with some rebound. No guarding Extremities: normal range of motion, non-tender Edema: other - No lower extremity edema bilaterally Neurologic: package designer II-XII grossly normal, no motor/sensory deficits, alert, oriented x 3 Skin: normal pigmentation, warm/dry Bonilla Rodriguez D.O. Jun 20, 2019 18:52
--- NOTE | 2019-06-20 19:05 | Discharge Summary ---
Discharge Summary Hospital Course Date of Admission Jun 16, 2019 at 11:38 Date of Discharge Jun 20, 2019 at 12:54 Admitting Diagnosis Abdominal Mass HPI Ky Romano is a 28 year old male who was admitted on Jun 16, 2019 at 11:38 for Abdominal Mass Consultations General surgery, hematology/oncology Hospital Course 28 y/o M from [facility] with HIV x 7 years on CASTILLO compliant who has admitted with severe abdominal pain. 28 y/o male from [facility] who was dx with HIV 7 years ago and has been on Genvoya therapy CASTILLO and is compliant with his medications. He denies prior OI, recent trauma, illness or sick contacts. Reported gradually worsening RUQ/ epigastric abdominal pain which is persistent and not going away over the past 2 weeks. He was unable to work because of the pain. He had intial workup in the ED and CT abdomen was abnormal with large mass noted in the posterior aspect of the ascending colon. CT abdomen pelvis showed a 6 x 8 x 10.4 cm hyperdense mass in the posterior lateral wall of the ascending colon. Narrowing of the colonic lumen without obstruction. Small hyperdense fluid along the right paracolic gutter and in the pelvis may be hemorrhagic. Findings worrisome for neoplasm, possibly hemorrhagic. An MRI abdomen pelvis was performed which redemonstrated the above mass. After careful review, general surgery believes mass was possible hemorrhagic duplication cyst vs cyst vs spont intramural hematoma. Upon discussion with hematology oncology, decision was made to reimage mass in 4 weeks. If mass was not resolving then would consider major surgery for excisional biopsy. No needle aspiration as there was a high risk for bleeding. The patient was continued in the hospital for pain management. A pain management was requested on the the day the patient left [facility]. The patient then decided to leave [facility] citing "wanting to go home" as his reason. He would not elaborate. I believe that the patient clearly had decision- making capacity to understand the risks of refusing care and leaving AGAINST MEDICAL ADVICE. I informed him about the consequences of leaving, including , permanent disability, and other possible unforeseen consequences. He understood these risks, but still refused to stay in the hospital. I have invited the patient back if he changes his/her mind, or worsens in any way. I have offered him the next best possible care including going to another hospital or returning to our ER. The patient is alert and oriented x4, and I certainly do not feel that I can hold him against his will and force treatment upon him that he does not want. I tried my best to explain to him the potential serious consequences of leaving AMA, but he still refused to stay, and signed out AMA. # Acute abdominal pain 2/2 large retroperitoneal mass compressing colon. No obstruction of colon. Suspect ruptured cyst with hematoma per general surgery and hematology/oncology #iron deficiency anemia , normocytic- stable. CT abdomen with 6 x 8.0 x 10.4 cm hyperdense mass of the posterior lateral wall of the ascending colon. Narrowing of the colonic lumen without obstruction. Small hyperdense fluid along the right paracolic gutter and in the pelvis may be hemorrhagic. Findings worrisome for neoplasm, possibly hemorrhagic. Differential may include hemorrhage or infection of a duplication cyst. > US abdomen reviewed and MRI w w/o contrast 06/18/19- redemonstrated above mass suspect hemorrhagic cyst > Patient mentions having the pain for 2 weeks prior to admission > continues to not be obstructed - Surgery consultation with Dr. Lopez. -No biopsy or surgical intervention for now. Pain control and repeat CT in 4-6 weeks - Full liquid diet for now, pending, advance as tolerated -Change to Percocet 5/325 mg p.o. every 6 hours as needed for mild to moderate pain, Percocet 10/325 mg p.o. every 6 hours as needed for severe pain. Continue Dilaudid 0.5 mg IV every 3 hours PRN for breakthrough pain. -Pain management consult - IVF low rate as he is taking oral diet. -Continue to trend CBC daily - Continue FeSO4 325mg PO daily # HIV - Continue Genyova CASTILLO per home medication - Follow up CD4 and viral load # Borderline Hypokalemia - resolved - IVF with KCL 20 meq ordered yesterday and stable now. - Monitor BMP as needed. Will not order labs for tomorrow as stable. #iron deficiency anemia > % sat 10, ferritin 120 - trend CBC - feSO4 as above # NO Anticoagulation ordered due to risk for hemorrhage in unknown abdominal mass - Patient is ambulatory and low risk for DVT FENPPX DVTPPX: SCDs GI PPX: none needed Fluids: 1/2 NS @ 50 cc/hr Diet: Full liquid diet, advance as tolerated Lines: peripheral PT/OT: ordered, can go home with no DME Code status: Full code Dispo: home <30 minutes spent on this encounter. Discussed with RN, patient, general surgery , and pain management. > 50% spent on counseling and care coordination. Time of note may not reflect time patient was seen. Discharge Condition Upon Discharge: other - guarded Discharge Disposition Patient left AMA Discharge Diagnoses: (1) Abdominal pain (2) HIV (human immunodeficiency virus infection) (3) Abdominal mass (4) Hypokalemia (5) Normocytic anemia Bonilla Rodriguez D.O. Jun 20, 2019 19:05
== END 2019-06-20 12:54 | disposition left against medical advice (07) | DRG 254 ==
LOC: EDBD 08:02 → EMR 08:06 → 4E 11:38 → EDBEDREQ 12:37 → 4E 20:19
DX: R19.00 Intra-abdominal and pelvic swelling, mass and lump, unspecified site (principal); E87.6 Hypokalemia; B20 Human immunodeficiency virus [HIV] disease; R10.9 Unspecified abdominal pain; D50.9 Iron deficiency anemia, unspecified
CPT/HCPCS: 36415; 74177; 74183; 76700; 80048; 80053; 81003; 82150; 82378; 82728; 83540; 83550; 83690; 83735; 84100; 85025; 85610; 85651; 85730; 86140; 86360; 87536; 90689; 96361; 96374; 96375; 99285; A9585; J2405; J2765; J7030